=== PATIENT | female | born 1965 | race Caucasian/White ===

== ENCOUNTER → 2019-12-03 | Outpatient (CLI) | payer OTHER | LOC: LABNPT 07:00 → MERGE 07:00 | PROVIDERS: ATTEND Podiatrist | DX: Z20.828 Contact with and (suspected) exposure to other viral communicable diseases (principal) | CPT/HCPCS: 87635 ==

== ENCOUNTER 2021-05-18 11:08 | Inpatient (IN) | payer BC ==
[~2021-05-18] VITALS: Ht 163 cm; Wt 82.9 kg
[2021-05-18] VITALS (15 sets, daily range): BP systolic 90–131; BP diastolic 32–83
[2021-05-18] MEDS ORDERED: KETOROLAC 30 MG/ML VIAL IVP ONE (11:30)
[2021-05-18] MEDS ORDERED: ONDANSETRON 4 MG/2 ML (SDV) Z0FRAN IVP ONE (11:30)
--- NOTE | 2021-05-18 11:36 | ED General ---
General Stated Complaint: SHIN,COUGH,BODY ACHES,SOB Source of Information: Patient Exam Limitations: No Limitations History of Present Illness Date Seen by Provider: May 18, 2021 Time Seen by Provider: 11:15 Initial Comments Patient is a 56-year-old female who presents to the emergency department today with a chief complaint of severe headache, generalized fatigue and malaise, body aches, hip pain, left-sided upper back pain with cough that is nonproductive. Fevers and chills. Nausea and vomiting. Loss of taste. Her symptoms have been ongoing for about 8 days (TuesdayMay 11). Patient did not get her Covid vaccine. She states she has been quarantining at home. She has not had any contact with anyone with Covid that she is aware of. She does go out periodically to shop but states that she does not routinely mask. Patient has a history of hypertension, on lisinopril 10 mg. She is a non-smoker. She does feel short of breath. Denies leg pain calf cramping or swelling. She has been taking Advil for her headaches and fever. Last dose was 400 mg early this morning. She states she has not been able to keep any food or fluid down in recent days. All other review of systems reviewed and negative except as stated. Timing/Duration: Other (9 days) Severity: Severe Associated Systoms: Cough, Diaphoresis, Fever/Chills, Headaches, Malaise, Nausea/Vomiting, Shortness of Air, Weakness Allergies and Home Medications Allergies Coded Allergies: No Known Drug Allergies (Unverified , 05/18/21) Patient Home Medication List Home Medication List Reviewed: Yes Review of Systems Review of Systems Constitutional: see HPI, chills, fever, malaise, weakness EENTM: no symptoms reported Respiratory: cough, short of breath Cardiovascular: no symptoms reported Gastrointestinal: diarrhea, nausea, vomiting Genitourinary: no symptoms reported : No Musculoskeletal: muscle pain Skin: no symptoms reported Psychiatric/Neurological: Headache All Other Systems Reviewed Negative Unless Noted: Yes Physical Exam Vital Signs Vital Signs - First Documented 05/18/21 11:17 Temp 37.0 Pulse 120 Resp 22 B/P (MAP) 92/53 (66) Pulse Ox 93 O2 Delivery Room Air Capillary Refill : Height, Weight, BMI Height: '" Weight: lbs. oz. kg; BMI Method: General Appearance: No Apparent Distress, WD/WN Eyes: Bilateral Eye Normal Inspection, Bilateral Eye PERRL, Bilateral Eye EOMI HEENT: PERRL/EOMI, Other (dry oral mucosa) Neck: Normal Inspection Respiratory: No Accessory Muscle Use, No Respiratory Distress, Crackles (left base), Other (oxygen saturations on RA 94%) Cardiovascular: Regular Rate, Rhythm (tachy 120's), Normal Peripheral Pulses Gastrointestinal: Normal Bowel Sounds, Non Tender, Soft Extremity: Normal Capillary Refill, Normal Inspection, Normal Range of Motion, Non Tender, No Calf Tenderness Neurologic/Psychiatric: Alert, Oriented x3, No Motor/Sensory Deficits, Normal Mood/Affect Skin: Normal Color, Warm/Dry Focused Exam Lactate Level 05/18/21 12:40: Lactic Acid Level 1.16 Lactic Acid Level Laboratory Tests Test 05/18/21 12:40 Lactic Acid Level 1.16 MMOL/L (0.50-2.00) Progress/Results/Core Measures Suspected Sepsis SIRS Temperature: Pulse: Respiratory Rate: Laboratory Tests 05/18/21 12:00: White Blood Count 11.3H Blood Pressure / Mean: 05/18/21 12:40: Lactic Acid Level 1.16 Laboratory Tests 05/18/21 12:00: Creatinine 1.17, INR Comment 0.9, Platelet Count 213, Total Bilirubin 0.4 Results/Orders Lab Results Laboratory Tests Test 05/18/21 11:45 05/18/21 12:00 05/18/21 12:40 Range/Units Influenza Type A (RT-PCR) Not Detected Not Detecte Influenza Type B (RT-PCR) Not Detected Not Detecte SARS-CoV-2 RNA (RT-PCR) Detected H Not Detecte White Blood Count 11.3 H 4.3-11.0 10^3/uL Red Blood Count 5.25 H 3.80-5.11 10^6/uL Hemoglobin 15.1 11.5-16.0 g/dL Hematocrit 45 35-52 % Mean Corpuscular Volume 86 80-99 fL Mean Corpuscular Hemoglobin 29 25-34 pg Mean Corpuscular Hemoglobin Concent 34 32-36 g/dL Red Cell Distribution Width 13.3 10.0-14.5 % Platelet Count 213 130-400 10^3/uL Mean Platelet Volume 10.9 9.0-12.2 fL Immature Granulocyte % (Auto) 1 % Neutrophils (%) (Auto) 85 H 42-75 % Lymphocytes (%) (Auto) 12 12-44 % Monocytes (%) (Auto) 3 0-12 % Eosinophils (%) (Auto) 0 0-10 % Basophils (%) (Auto) 0 0-10 % Neutrophils # (Auto) 9.6 H 1.8-7.8 10^3/uL Lymphocytes # (Auto) 1.3 1.0-4.0 10^3/uL Monocytes # (Auto) 0.3 0.0-1.0 10^3/uL Eosinophils # (Auto) 0.0 0.0-0.3 10^3/uL Basophils # (Auto) 0.0 0.0-0.1 10^3/uL Immature Granulocyte # (Auto) 0.1 0.0-0.1 10^3/uL Prothrombin Time 12.9 12.2-14.7 SEC INR Comment 0.9 0.8-1.4 Activated Partial Thromboplast Time 33 24-35 SEC D-Dimer 0.62 H 0.00-0.49 UG/ML Sodium Level 134 L 135-145 MMOL/L Potassium Level 3.9 3.6-5.0 MMOL/L Chloride Level 104 98-107 MMOL/L Carbon Dioxide Level 17 L 21-32 MMOL/L Anion Gap 13 5-14 MMOL/L Blood Urea Nitrogen 22 H 7-18 MG/DL Creatinine 1.17 0.60-1.30 MG/DL Estimat Glomerular Filtration Rate 48 BUN/Creatinine Ratio 19 Glucose Level 101 70-105 MG/DL Calcium Level 8.2 L 8.5-10.1 MG/DL Corrected Calcium 8.8 8.5-10.1 MG/DL Total Bilirubin 0.4 0.1-1.0 MG/DL Aspartate Amino Transf (AST/SGOT) 38 H 5-34 U/L Alanine Aminotransferase (ALT/SGPT) 25 0-55 U/L Alkaline Phosphatase 52 40-136 U/L C-Reactive Protein High Sensitivity 17.86 H 0.00-0.50 MG/DL Total Protein 6.5 6.4-8.2 GM/DL Albumin 3.3 3.2-4.5 GM/DL Procalcitonin 0.44 H <0.10 NG/ML Lactic Acid Level 1.16 0.50-2.00 MMOL/L My Orders Orders - HARRISON FOSTER MD Cbc With Automated Diff (05/18/21 11:28) Comprehensive Metabolic Panel (05/18/21 11:28) Blood Culture (05/18/21 11:28) Sputum Culture (05/18/21 11:28) Protime With Inr (05/18/21 11:28) Partial Thromboplastin Time (05/18/21 11:28) Chest 1 View, Ap/Pa Only (05/18/21 11:28) Ed Iv/Invasive Line Start (05/18/21 11:28) Ed Iv/Invasive Line Start (05/18/21 11:28) Vital Signs Adult Sepsis Patie Q15M (05/18/21 11:28) O2 (05/18/21 11:28) Remove Rings In Anticipation O (05/18/21 11:28) Lactic Acid Analyzer (05/18/21 11:28) Influenza A And B By Pcr (05/18/21 11:28) Covid 19 Inhouse Test (05/18/21 11:28) Hs C Reactive Protein (05/18/21 11:28) Fibrin Degradation Products (05/18/21 11:28) Ns Iv 1000 Ml (Sodium Chloride 0.9%) (05/18/21 11:30) Ondansetron Injection (Zofran Injectio (05/18/21 11:30) Ketorolac Injection (Toradol Injection) (05/18/21 11:30) Procalcitonin (Pct) (05/18/21 11:36) Ns Iv 1000 Ml (Sodium Chloride 0.9%) (05/18/21 16:01) Ceftriaxone 1 Gm Pre-Mix (Rocephin 1 Gm (05/18/21 16:15) Azithromycin Injection (Zithromax Inject (05/18/21 16:15) Tocilizumab Injection (Non-For (Actemra (05/18/21 16:15) Dexamethasone Injection (Decadron Injec (05/18/21 16:15) Medications Given in ED Vital Signs/I&O 05/18/21 05/18/21 05/18/21 11:17 14:00 14:55 Temp 37.0 36.8 38.0 Pulse 120 100 104 Resp 22 22 20 B/P (MAP) 92/53 (66) 114/69 108/62 Pulse Ox 93 95 94 O2 Delivery Room Air Room Air Room Air 05/19/21 00:00 Intake Total 250 ml Balance 250 ml Capillary Refill : Progress Note #1: Time: 13:35 Progress Note Patient is very fluid responsive with her blood pressure. Currently 111/65, second liter of normal saline is infusing. Patient's heart rate is down. Oxygen saturations remained 94 to 95% on room air. Lactic acid is less than 2. CRP is elevated pro-Deandre is slightly elevated. D-dimer is marginally elevated at 0.65. Patient's electrolytes are normal, CBC reveals a white count of 12,000. Discussed with the hospitalist, he would recommend Regeneron treatment. Would give the patient the expectation of potentially worsening throughout the night. Would recommend a pulse oximeter at home to monitor her oxygen saturation. I have provided the patient with the fax sheet on Regeneron infusion. I have discussed the fact that this is an EUA medication, still under investigation. But is also used for the treatment outpatient of Covid pneumonia. Patient verbalized understanding and is aware of the risks and potential benefits. She would like to proceed with infusion. We do not have an infusion clinic tomorrow and as the patient is 8 days into her illness we are going to give it to her here in the emergency department prior to discharge to home. Progress Note #2: Time: 14:46 Progress Note Patient remains a little tachy with a HR of 110; blood pressure 107/56. oxygen on RA is 94% Progress Note #3: Time: 16:07 Progress Note Reevaluated patient approximately an hour after the Regeneron infusion. Patient was noted to be declining and oxygen saturations while at rest in the bed satting 90 to 91% on room air. She is tachycardic at 113. Her temp has gone up a little bit and is slightly over 100 degrees. Blood pressure is up in the 120s however after she completed 2 L of normal saline. Patient was ambulated in the department and dropped oxygen saturations down to 85 to 86%. She became very dyspneic. Case was discussed with Dr. Smith who agreed with admission. We will put her inpatient on the cardiac stepdown unit. He requested Decadron 6 mg, Actemra protocol, azithromycin 500 mg IV, Rocephin 1 g IV. We will start her on Lovenox 40 mg subcu once daily. She will have some maintenance fluids started. Diagnostic Imaging Diagonstic Imaging: Xray Plain Films/CT/US/NM/MRI: chest Comments [facility] [place], [place] NAME: RICHELLE BLACK [facility] REC#: [id number] PT STATUS: REG ER : 1965 PHYSICIAN: HARRISON FOSTER MD ADMIT DATE: 05/18/21/ER Draft Date of Exam:05/18/21 CHEST 1 VIEW, AP/PA ONLY HISTORY: Covid positive, headache, cough, shortness of air, dizziness, fever. COMPARISON: None. TECHNIQUE: Frontal view of the chest. FINDINGS: There are patchy airspace opacities throughout the right lung and in the left lung base. There is no pleural effusion or pneumothorax. The cardiac silhouette is normal in size. The lung volumes are low. No acute osseous abnormality is seen. Cervical spine fusion hardware is noted. IMPRESSION: Bilateral airspace opacities, right greater than left, consistent with infection. The report was faxed to Infection Control by [email or web address]@1:08 PM. Dictated on workstation # [id number] Dict: 05/18/21 1251 Trans: 05/18/21 1309 [id number] Interpreted by: KAROLYN MAC MD Electronically signed by: Critical Care Note Critical Care Start Time: 11:15 Stop Time: 16:09 Total Time (minutes) Critical care time 1 hour total in the evaluation and management of this 56-year-old patient with Covid pneumonia. Time includes initial evaluation and management of relatively low blood pressure and tachycardia with fluid resuscitation x2 L, serial reevaluations of her status both respiratory and circulatory. Time includes review and interpretation of laboratory studies, chest x-ray, inflammatory markers. Time includes administration of Regeneron therapy, monitoring for an hour afterwards. Also includes oxygen placement due to declining respiratory status, increasing hypoxia. Time also includes discussion with the hospitalist for admission orders. Departure Impression Primary Impression: Pneumonia due to COVID-19 virus Disposition: ADMITTED INPATIENT Condition: Critical Admissions Decision to Admit Reason: Admit from ER (General) Decision to Admit/Date: May 18, 2021 Time/Decision to Admit Time: 16:11 Departure-Patient Inst. Decision time for Depature: 13:37 Referrals: NO,LOCAL PHYSICIAN (PCP/Family) Primary Care Physician Patient Instructions: COVID-19 ED Add. Discharge Instructions: Please stop by the [facility] pharmacy or other pharmacy of your choice that preferably has a drive-through option and obtain a pulse oximeter. You will need to periodically check your oxygen on your finger. If it drops below 90 you need to come back to the emergency department for admission to the hospital. Please drink plenty of fluids to stay well-hydrated. Take Tylenol and/or ibuprofen as needed for fever and body aches. We have given you the Regeneron infusion today. It will hopefully shorten the course of your illness. Please come back to the emergency department for any other new, concerning or emergent complaints. You will need to quarantine for a total of 10 days. Please follow-up with your primary care physician. HARRISON FOSTER MD May 18, 2021 11:36
[2021-05-18] MEDS: NS IV 1000 ML 1,000 ML IV SCH ×3 (11:59→18:43)
[2021-05-18 12:09] LABS: BASOPHILS % (AUTO) 0 % (0-10); EOSINOPHILS % (AUTO) 0 % (0-10); HEMATOCRIT 45 % (35-52); HEMOGLOBIN 15.1 g/dL (11.5-16.0); LYMPHOCYTES # (AUTO) 1.3 10^3/uL (1.0-4.0); LYMPHOCYTES % (AUTO) 12 % (12-44); MEAN CORPUSCULAR HEMOGLOBIN 29 pg (25-34); MEAN CORPUSCULAR HGB CONC 34 g/dL (32-36); MEAN CORPUSCULAR VOLUME 86 fL (80-99); MEAN PLATELET VOLUME 10.9 fL (9.0-12.2); MONOCYTES # (AUTO) 0.3 10^3/uL (0.0-1.0); MONOCYTES % (AUTO) 3 % (0-12); NEUTROPHILS # (AUTO) 9.6 10^3/uL (1.8-7.8); NEUTROPHILS % (AUTO) 85 % (42-75); PLATELET COUNT 213 10^3/uL (130-400); WHITE BLOOD COUNT 11.3 10^3/uL (4.3-11.0)
[2021-05-18 12:18] LABS: ALBUMIN 3.3 GM/DL (3.2-4.5); POTASSIUM 3.9 MMOL/L (3.6-5.0)
[2021-05-18 12:19] LABS: CALCIUM 8.2 MG/DL (8.5-10.1)
[2021-05-18 12:21] LABS: TOTAL PROTEIN 6.5 GM/DL (6.4-8.2)
[2021-05-18 12:22] LABS: BILIRUBIN,TOTAL 0.4 MG/DL (0.1-1.0)
[2021-05-18 12:24] LABS: CREATININE SERUM 1.17 MG/DL (0.60-1.30)
[2021-05-18 12:25] LABS: FIBRIN DEGRADATION PRODUCTS 0.62 UG/ML (0.00-0.49); INR 0.9 (0.8-1.4); PROTHROMBIN TIME PATIENT 12.9 SEC (12.2-14.7)
--- NOTE | 2021-05-18 12:54 | Diagnostic Imaging Report ---
HISTORY: Covid positive, headache, cough, shortness of air, dizziness, fever. COMPARISON: None. TECHNIQUE: Frontal view of the chest. FINDINGS: There are patchy airspace opacities throughout the right lung and in the left lung base. There is no pleural effusion or pneumothorax. The cardiac silhouette is normal in size. The lung volumes are low. No acute osseous abnormality is seen. Cervical spine fusion hardware is noted. IMPRESSION: Bilateral airspace opacities, right greater than left, consistent with infection. The report was faxed to Infection Control by [email or web address]@1:08 PM. Dictated by: Dictated on workstation # [id number]
[2021-05-18] MEDS ORDERED: EPINEPHrine INJECTION 1 MG/ML AMP IM PRN (13:45)
[2021-05-18] MEDS ORDERED: diphenhydrAMINE 50 MG/ML INJ (BENADRYL) IV PRN (13:45)
[2021-05-18] MEDS ORDERED: CASIRIVIMAB/IMDEVIMAB 1,200 MG in NS (IVPB) 250 ML IV ONE (14:00)
[2021-05-18] MEDS ORDERED: ACETAMINOPHEN 500 MG TAB (TYLENOL) PO PRN (14:00)
[2021-05-18] MEDS ORDERED: ONDANSETRON 4 MG/2 ML (SDV) Z0FRAN IV PRN ×2 (14:00→18:30)
[2021-05-18] MEDS ORDERED: NS IV 1000 ML 1,000 ML IV STA (16:01)
[2021-05-18] MEDS ORDERED: cefTRIAXone 1 GM PRE-MIX 50 ML IV ONE (16:15)
[2021-05-18] MEDS ORDERED: TOCILIZUMAB INJECTION (NON-FOR 400 MG, TOCILIZUMAB INJECTION 200 MG in NS (IVPB) 70 ML IV ONE (16:15)
[2021-05-18] MEDS ORDERED: AZITHROMYCIN INJECTION 500 MG in NS (IVPB) 250 ML IV ONE (16:15)
[2021-05-18] MEDS ORDERED: CATHETER FLUSH 10 ML SYR IV PRN (18:30)
[2021-05-18] MEDS: ENOXAPARIN 40 MG/0.4 ML (LOVENOX) SYR SC SCH (21:00)
[2021-05-19] VITALS (11 sets, daily range): BP systolic 92–144; BP diastolic 53–81
[2021-05-19] MEDS: NS IV 1000 ML 1,000 ML IV SCH ×2 (01:14→11:24)
[2021-05-19] MEDS: ACETAMINOPHEN 500 MG TAB (TYLENOL) PO PRN ×2 (01:16→08:38)
[2021-05-19 05:58] LABS: BASOPHILS % (AUTO) 0 % (0-10); EOSINOPHILS % (AUTO) 0 % (0-10); HEMATOCRIT 35 % (35-52); HEMOGLOBIN 11.8 g/dL (11.5-16.0); LYMPHOCYTES # (AUTO) 1.7 10^3/uL (1.0-4.0); LYMPHOCYTES % (AUTO) 14 % (12-44); MEAN CORPUSCULAR HEMOGLOBIN 29 pg (25-34); MEAN CORPUSCULAR HGB CONC 34 g/dL (32-36); MEAN CORPUSCULAR VOLUME 85 fL (80-99); MEAN PLATELET VOLUME 10.4 fL (9.0-12.2); MONOCYTES # (AUTO) 0.4 10^3/uL (0.0-1.0); MONOCYTES % (AUTO) 3 % (0-12); NEUTROPHILS % (AUTO) 82 % (42-75); PLATELET COUNT 212 10^3/uL (130-400); WHITE BLOOD COUNT 12.3 10^3/uL (4.3-11.0)
[2021-05-19 06:07] LABS: SMEAR SCAN COMMENT YES
[2021-05-19 06:12] LABS: ALBUMIN 2.7 GM/DL (3.2-4.5)
[2021-05-19 06:13] LABS: POTASSIUM 3.5 MMOL/L (3.6-5.0)
[2021-05-19 06:15] LABS: TOTAL PROTEIN 5.2 GM/DL (6.4-8.2)
[2021-05-19 06:17] LABS: BILIRUBIN,TOTAL 0.3 MG/DL (0.1-1.0)
[2021-05-19 06:19] LABS: CREATININE SERUM 0.78 MG/DL (0.60-1.30)
[2021-05-19] MEDS: cefTRIAXone 1 GM IV (PRE-MIX) 50 ML IV SCH (08:37)
[2021-05-19] MEDS: AZITHROMYCIN 250 MG TAB (ZITHROMAX) PO SCH (08:38)
[2021-05-19] MEDS ORDERED: OMEP20CA18 PO (09:49)
[2021-05-19] MEDS ORDERED: IBUP-30 PO (09:49)
[2021-05-19] MEDS ORDERED: ESTR0.5T3 PO (09:49)
[2021-05-19] MEDS ORDERED: ASCO500T17 PO (09:49)
[2021-05-19] MEDS ORDERED: CHOL-34 PO (09:49)
[2021-05-19] MEDS ORDERED: LISI10TA25 PO (09:49)
[2021-05-19] MEDS ORDERED: DOXY100C5 PO (09:49)
[2021-05-19] MEDS ORDERED: ZINC50TA58 PO (09:49)
[2021-05-19] MEDS ORDERED: DEXTROMETHORPHAN SUSP 30 MG/5 ML 30 ML (DELSYM) PO SCH (11:00)
[2021-05-19] MEDS: guaiFENesin/DM (ROBITUSSIN DM) 10 ML UDC PO PRN ×3 (11:57→20:13)
[2021-05-19] MEDS ORDERED: NS IV NR ×3 (12:00)
[2021-05-19] MEDS ORDERED: TOCILIZUMAB IV NR ×3 (12:00)
--- NOTE | 2021-05-19 13:25 | History & Physical-Hospitalist ---
History of Present Illness HPI/Chief Complaint Orly Rai is a 56 year old female with PMH HTN, GERD, who presented with shortness of breath. Her symptoms started one week ago. She has been having fevers and chills. She has been having cough. She reports diarrhea. She reports nausea with coughing. She denies abdominal pain. She is not vaccinated against COVID. She was seen in the ER yesterday and was not requiring oxygen and was given the monoclonal antibody infusion. She was walking prior to being discharged and became hypoxic. Source: patient Exam Limitations: no limitations Date Seen 05/19/21 Time Seen by a Provider: 10:40 Attending Physician Shamika Coronado MD PCP No,Local Physician Referring Physician Date of Admission May 18, 2021 at 16:15 Home Medications & Allergies Home Medications Reviewed patient Home Medication Reconciliation performed by pharmacy medication reconciliations missile and missile checkout technician and/or nursing. Patients Allergies have been reviewed. Allergies Allergies Coded Allergies losartan (Verified Adverse Reaction, Unknown, 05/19/21) SEVERE HEADACHES Past Uncvamc-Nylylt-Pbxmol Hx Patient Social History Tobacco Use?: No Smoking Status: Never a Smoker Smokeless Tobacco Frequency: Never a User Use of E-Cig and/or Vaping dev: No Substance use?: No Alcohol Use?: No Pt feels they are or have been: No Immunizations Up To Date First/Initial COVID19 Vaccinat: NONE Second COVID19 Vaccination Brian: NONE Current Status Advance Directives: No Communicates: Verbally Primary Language: Luxembourger Preferred Spoken Language: Luxembourger Is interpretation needed?: No Implanted or Applied Medical D: None Past Medical History Hypertension Gastroesophageal Reflux Family Medical History No Pertinent Family Hx Review of Systems Constitutional: chills, fever EENTM: no symptoms reported Respiratory: cough, short of breath Cardiovascular: no symptoms reported Gastrointestinal: diarrhea, nausea Genitourinary: no symptoms reported Musculoskeletal: no symptoms reported Skin: no symptoms reported Psychiatric/Neurological: No Symptoms Reported Physical Exam Physical Exam Vital Signs Vital Signs - First Documented 05/18/21 05/18/21 11:17 16:20 Temp 37.0 Pulse 120 Resp 22 B/P (MAP) 92/53 (66) Pulse Ox 93 O2 Delivery Room Air O2 Flow Rate 2.00 Capillary Refill : Less Than 3 Seconds Height, Weight, BMI Height: '" Weight: lbs. oz. kg; 30.71 BMI Method: General Appearance: WD/WN, Anxious, Mild Distress (uncomfortable) HEENT: PERRL/EOMI, Pharynx Normal Neck: Normal Inspection, Supple Respiratory: Lungs Clear, Normal Breath Sounds, No Respiratory Distress Cardiovascular: Regular Rate, Rhythm, No Edema, No Murmur Gastrointestinal: Normal Bowel Sounds, Non Tender, Soft Extremity: Normal Inspection, Non Tender, No Pedal Edema Neurologic/Psychiatric: Alert, Oriented x3, No Motor/Sensory Deficits, Normal Mood/Affect Skin: Normal Color, Warm/Dry Results Results/Procedures Labs Laboratory Tests 05/18/21 12:00 05/19/21 05:10 Patient resulted labs reviewed. Imaging: Reviewed Imaging Report Assessment/Plan Admission Diagnosis Acute respiratory failure due to COVID-19 Admission Status: Inpatient Order (span 2 midnights) Reason for Inpatient Admission: Respiratory failure Assessment and Plan Acute respiratory failure due to COVID-19 Secondary bacterial pneumonia COVID+ on arrival, symptoms started 05/11 s/p monoclonal antibody infusion Supplemental oxygen as needed Started on Decadron Inflammatory markers markedly elevated Worsening hypoxia Discussed Actemra risks/benefits/EUA use and patient agrees Procalcitonin elevated Started on Rocephin and Azithromycin Ddimer within normal limits Prophylactic Lovenox Acute kidney injury Received IV fluids in ER Resolved Decrease maintenance fluids HTN Hold home meds Monitor GERD Continue PPI Obesity Clinically significant, no acute management needs DVT prophylaxis: Lovenox Diagnosis/Problems Diagnosis/Problems (1) Acute respiratory failure Status: Acute Qualifiers: Respiratory failure complication: hypoxia Qualified Codes: J96.01 - Acute respiratory failure with hypoxia (2) Pneumonia due to COVID-19 virus Status: Acute (3) Secondary bacterial pneumonia Status: Acute (4) CHESTER (acute kidney injury) Status: Acute (5) Obesity Status: Chronic (6) HTN (hypertension) Status: Chronic (7) GERD (gastroesophageal reflux disease) Status: Chronic SHAMIKA CORONADO MD May 19, 2021 13:25
[2021-05-19] MEDS: ENOXAPARIN 40 MG/0.4 ML (LOVENOX) SYR SC SCH (17:55)
[2021-05-19] MEDS: BENZONATATE 100 MG (TESSALON) CAPSULE PO SCH (20:13)
[2021-05-20 00:33] VITALS: BP 125/73
[2021-05-20] MEDS: RT-ALBUTEROL HFA 8.5 GM INHALER IH PRN (00:41)
[2021-05-20 04:14] VITALS: BP 114/78
[2021-05-20] MEDS: NS IV 1000 ML 1,000 ML IV SCH ×2 (04:39→12:02)
[2021-05-20 05:04] LABS: BASOPHILS % (AUTO) 0 % (0-10); EOSINOPHILS % (AUTO) 0 % (0-10); HEMATOCRIT 36 % (35-52); HEMOGLOBIN 12.3 g/dL (11.5-16.0); LYMPHOCYTES # (AUTO) 2.3 10^3/uL (1.0-4.0); LYMPHOCYTES % (AUTO) 20 % (12-44); MEAN CORPUSCULAR HEMOGLOBIN 29 pg (25-34); MEAN CORPUSCULAR HGB CONC 34 g/dL (32-36); MEAN CORPUSCULAR VOLUME 85 fL (80-99); MEAN PLATELET VOLUME 10.3 fL (9.0-12.2); MONOCYTES # (AUTO) 0.4 10^3/uL (0.0-1.0); MONOCYTES % (AUTO) 4 % (0-12); NEUTROPHILS # (AUTO) 8.4 10^3/uL (1.8-7.8); NEUTROPHILS % (AUTO) 75 % (42-75); PLATELET COUNT 240 10^3/uL (130-400); WHITE BLOOD COUNT 11.3 10^3/uL (4.3-11.0)
[2021-05-20] MEDS: guaiFENesin/DM (ROBITUSSIN DM) 10 ML UDC PO PRN ×2 (05:08→21:22)
[2021-05-20 05:20] LABS: ALBUMIN 2.8 GM/DL (3.2-4.5)
[2021-05-20 05:21] LABS: POTASSIUM 3.7 MMOL/L (3.6-5.0)
[2021-05-20 05:22] LABS: CALCIUM 7.6 MG/DL (8.5-10.1)
[2021-05-20 05:23] LABS: TOTAL PROTEIN 5.5 GM/DL (6.4-8.2)
[2021-05-20 05:25] LABS: BILIRUBIN,TOTAL 0.3 MG/DL (0.1-1.0)
[2021-05-20 05:27] LABS: CREATININE SERUM 0.67 MG/DL (0.60-1.30)
[2021-05-20 07:34] VITALS: BP 132/69
[2021-05-20] MEDS: PANTOPRAZOLE 40 MG (PROTONIX) TAB PO SCH (07:48)
[2021-05-20] MEDS: BENZONATATE 100 MG (TESSALON) CAPSULE PO SCH ×3 (07:48→21:22)
[2021-05-20] MEDS: cefTRIAXone 1 GM IV (PRE-MIX) 50 ML IV SCH (07:49)
[2021-05-20] MEDS: AZITHROMYCIN 250 MG TAB (ZITHROMAX) PO SCH (07:49)
[2021-05-20] MEDS ORDERED: RT-ALBUTEROL HFA 8.5 GM INHALER IH SCH (08:00)
[2021-05-20] MEDS: RT-ALBUTEROL HFA 8.5 GM INHALER IH SCH ×4 (08:11→21:15)
[2021-05-20 11:47] VITALS: BP 114/59
--- NOTE | 2021-05-20 12:04 | Progress Note - Hospitalist ---
Subjective HPI/CC On Admission Date Seen by Provider: May 20, 2021 Time Seen by Provider: 09:45 Orly Rai is a 56 year old female with PMH HTN, GERD, who presented with shortness of breath. Her symptoms started one week ago. She has been having fevers and chills. She has been having cough. She reports diarrhea. She reports nausea with coughing. She denies abdominal pain. She is not vaccinated against COVID. She was seen in the ER yesterday and was not requiring oxygen and was given the monoclonal antibody infusion. She was walking prior to being discharged and became hypoxic. Subjective/Events-last exam She is feeling a little better today. Her cough is better. She is feeling a bit anxious. She is not having subjective fevers. She does not have an appetite. She does not like the smell of the oxygen tubing. She does not like the pressure of the high flow oxygen. Focused Exam Lactate Level 05/18/21 12:40: Lactic Acid Level 1.16 Objective Exam Vital Signs Vital Signs Date Time Temp Pulse Resp B/P (MAP) Pulse Ox O2 Delivery O2 Flow Rate FiO2 05/20/21 11:47 36.0 99 24 114/59 (77) 93 Vapotherm 20.00 80.00 05/20/21 10:27 100 Capillary Refill : Less Than 3 Seconds General Appearance: WD/WN, Anxious, Mild Distress (tachypnea) Respiratory: Lungs Clear, Normal Breath Sounds, Respiratory Distress (tachypnea) Cardiovascular: No Edema, No Murmur, Tachycardia Gastrointestinal: Normal Bowel Sounds, Non Tender, Soft Extremity: Normal Inspection, Non Tender, No Pedal Edema Neurologic/Psychiatric: Alert, Oriented x3, No Motor/Sensory Deficits Skin: Normal Color, Warm/Dry Results/Procedures Lab Laboratory Tests 05/20/21 04:41 Patient resulted labs reviewed. Imaging: Reviewed Imaging Report Assessment/Plan Assessment and Plan Assess & Plan/Chief Complaint Acute respiratory failure due to COVID-19 Secondary bacterial pneumonia COVID+ on arrival, symptoms started 05/11 Supplemental oxygen as needed Worsening hypoxia s/p monoclonal antibody infusion 05/18 Continue Decadron s/p Actemra 05/19 Continue Rocephin and Azithromycin Prophylactic Lovenox HTN Hold home meds Monitor GERD Continue PPI Obesity Clinically significant, no acute management needs DVT prophylaxis: Lovenox Acute kidney injury, resolved Diagnosis/Problems Diagnosis/Problems (1) Acute respiratory failure Status: Acute Qualifiers: Respiratory failure complication: hypoxia Qualified Codes: J96.01 - Acute respiratory failure with hypoxia (2) Pneumonia due to COVID-19 virus Status: Acute (3) Secondary bacterial pneumonia Status: Acute (4) CHESTER (acute kidney injury) Status: Resolved Resolution Date/Time: 05/20/21 @ 12:03 (5) Obesity Status: Chronic (6) HTN (hypertension) Status: Chronic (7) GERD (gastroesophageal reflux disease) Status: Chronic SHAMIKA CORONADO MD May 20, 2021 12:04
[2021-05-20] MEDS: LACTATED RINGERS 1,000 ML IV SCH ×2 (12:57→21:21)
[2021-05-20] MEDS: ALPRAZolam 0.25 MG (XANAX) TAB PO PRN ×2 (12:57→21:22)
[2021-05-20 15:13] VITALS: BP 132/76
[2021-05-20] MEDS: ENOXAPARIN 40 MG/0.4 ML (LOVENOX) SYR SC SCH (18:10)
[2021-05-20 20:00] VITALS: BP 148/84
[2021-05-21] VITALS (18 sets, daily range): BP systolic 92–176; BP diastolic 53–111
[2021-05-21 05:01] LABS: BASOPHILS % (AUTO) 0 % (0-10); EOSINOPHILS % (AUTO) 0 % (0-10); HEMATOCRIT 37 % (35-52); HEMOGLOBIN 12.3 g/dL (11.5-16.0); LYMPHOCYTES # (AUTO) 1.8 10^3/uL (1.0-4.0); LYMPHOCYTES % (AUTO) 17 % (12-44); MEAN CORPUSCULAR HEMOGLOBIN 28 pg (25-34); MEAN CORPUSCULAR HGB CONC 33 g/dL (32-36); MEAN CORPUSCULAR VOLUME 85 fL (80-99); MEAN PLATELET VOLUME 9.7 fL (9.0-12.2); MONOCYTES # (AUTO) 0.6 10^3/uL (0.0-1.0); MONOCYTES % (AUTO) 6 % (0-12); NEUTROPHILS # (AUTO) 8.5 10^3/uL (1.8-7.8); NEUTROPHILS % (AUTO) 76 % (42-75); PLATELET COUNT 281 10^3/uL (130-400); WHITE BLOOD COUNT 11.1 10^3/uL (4.3-11.0)
[2021-05-21 05:16] LABS: ALBUMIN 2.9 GM/DL (3.2-4.5); POTASSIUM 3.7 MMOL/L (3.6-5.0)
[2021-05-21 05:17] LABS: CALCIUM 8.1 MG/DL (8.5-10.1)
[2021-05-21 05:19] LABS: TOTAL PROTEIN 5.6 GM/DL (6.4-8.2)
[2021-05-21 05:21] LABS: BILIRUBIN,TOTAL 0.3 MG/DL (0.1-1.0)
[2021-05-21 05:22] LABS: CREATININE SERUM 0.69 MG/DL (0.60-1.30)
[2021-05-21] MEDS: LACTATED RINGERS 1,000 ML IV SCH ×3 (05:57→17:30)
[2021-05-21] MEDS: RT-ALBUTEROL HFA 8.5 GM INHALER IH SCH ×4 (06:56→18:57)
[2021-05-21] MEDS: AZITHROMYCIN 250 MG TAB (ZITHROMAX) PO SCH (08:30)
[2021-05-21] MEDS: PANTOPRAZOLE 40 MG (PROTONIX) TAB PO SCH (08:30)
[2021-05-21] MEDS: cefTRIAXone 1 GM IV (PRE-MIX) 50 ML IV SCH (08:30)
[2021-05-21] MEDS: BENZONATATE 100 MG (TESSALON) CAPSULE PO SCH ×3 (08:30→21:24)
--- NOTE | 2021-05-21 08:37 | Diagnostic Imaging Report ---
INDICATION: Covid pneumonia. Cough with respiratory distress. Comparison with 05/18/2021. FINDINGS: Portable chest. There has been near complete opacification of the right lung now. There are air bronchograms. Left lung shows increasing infiltrate as well especially in the lower lobe. The left upper lung remains clear. The heart is upper limits of normal. No pneumothorax or pleural effusion. IMPRESSION: 1. Bilateral pneumonia with significant increase in alveolar infiltrate especially in the right lung since previous exam. Dictated by: Dictated on workstation # [id number]
[2021-05-21] MEDS: ACETAMINOPHEN 500 MG TAB (TYLENOL) PO PRN (10:30)
[2021-05-21] MEDS: ALPRAZolam 0.25 MG (XANAX) TAB PO PRN (10:30)
[2021-05-21] MEDS: guaiFENesin/DM (ROBITUSSIN DM) 10 ML UDC PO PRN ×2 (10:30→21:24)
--- NOTE | 2021-05-21 13:59 | Tele-ICU Consult ---
History of Present Illness History of Present Illness Date Seen by Provider: May 21, 2021 Time Seen by Provider: 12:15 History of Present Illness She is a 56-year-old female with unknown past medical history but no history of Covid vaccination presented to the emergency department on 05/18/2021 with a complaint of severe headache generalized fatigue malaise nonproductive cough fevers and chills. Chest x-ray showed bilateral infiltrates and she is positive for Covid PCR. She is admitted to medical floor and treated with BiPAP ventilation and antibiotics. However as her oxygen demand increased and she is transferred to the intensive care unit. She is currently resting well with Vapotherm but unable to walk even 2 feet without getting short of breath and hypoxic. She is unable to give any detailed history. I have reviewed and made a video visit and discussed with the GRAPHIC COORDINATOR. Available electronic data and images reviewed. Allergies and Home Medications Allergies Coded Allergies: losartan (Verified Adverse Reaction, Unknown, 05/19/21) SEVERE HEADACHES Home Medications Ascorbic Acid 500 Mg Tablet, 500 MG PO DAILY, (Reported) Cholecalciferol (Vitamin D3) 25 Mcg Tablet, 25 MCG PO DAILY, (Reported) Doxycycline Hyclate 100 Mg Capsule, 100 MG PO BID, (Reported) Estradiol 0.5 Mg Tablet, 0.5 MG PO DAILY, (Reported) Ibuprofen 200 Mg Tablet, 400-600 MG PO Q8H PRN for PAIN-MILD (1-4), (Reported) Lisinopril 10 Mg Tablet, 10 MG PO DAILY, (Reported) Omeprazole 20 Mg Capsule.dr, 20 MG PO BID, (Reported) Zinc 50 Mg Tablet, 50 MG PO DAILY, (Reported) Past Medical/Social/Family Hx Patient Social History Tobacco Use?: No Smoking Status: Never a Smoker Smokeless Tobacco Frequency: Never a User Use of E-Cig and/or Vaping dev: No Substance use?: No Alcohol Use?: No Pt stated abuse/neglect: No Immunizations Up To Date Influenza Vaccine Up-to-Date: No; Not Current First/Initial COVID19 Vaccinat: NONE Second COVID19 Vaccination Brian: NONE Current Status Advance Directives: No Communicates: Verbally Primary Language: French Preferred Spoken Language: French Is interpretation needed?: No Implanted or Applied Medical D: None Review of Systems Constitutional: see HPI Sepsis Event Evaluation Height, Weight, BMI Height: '" Weight: lbs. oz. kg; 30.71 BMI Method: Exam Exam Patient acknowledged, consented, and participated in this virtual visit which was conducted using real time audio/video Vital Signs Date Time Temp Pulse Resp B/P (MAP) Pulse Ox O2 Delivery O2 Flow Rate FiO2 05/21/21 13:00 100 05/21/21 12:05 35.7 05/21/21 11:00 152/111 (125) 93 Vapotherm 20.00 100.00 05/21/21 10:00 96 Vapotherm 30.00 100 05/21/21 10:00 92 31 153/96 (115) 93 Vapotherm 20.00 100.00 05/21/21 09:00 98 21 137/79 (98) 89 Vapotherm 20.00 100.00 05/21/21 08:04 36.3 103 22 136/88 (104) 90 Vapotherm 05/21/21 08:00 Vapotherm 30.00 100 05/21/21 07:00 87 05/21/21 06:56 87 Vapotherm 22.00 100 05/21/21 04:00 37.0 05/21/21 01:00 86 05/21/21 00:00 37.0 86 24 105/82 (90) 94 Vapotherm 20.00 100.00 05/20/21 21:15 85 Vapotherm 20.00 80 05/20/21 20:00 Vapotherm 20.00 100 05/20/21 20:00 36.7 92 26 148/84 (105) 92 Vapotherm 05/20/21 19:00 100 05/20/21 15:26 91 Vapotherm 20.00 80 05/20/21 15:13 35.9 96 22 132/76 (94) 92 Vapotherm 20.00 80.00 I & O 05/21/21 07:00 Intake Total 3200 ml Output Total 800 ml Balance 2400 ml Height & Weight Height: '" Weight: lbs. oz. kg; 30.71 BMI Method: General Appearance: WD/WN, Anxious, Mild Distress (tachypnea) HEENT: PERRL/EOMI, Pharynx Normal Neck: Normal Inspection, Supple Respiratory: Lungs Clear, Normal Breath Sounds, Respiratory Distress (tachypnea) Cardiovascular: No Edema, No Murmur, Tachycardia Capillary Refill: Less Than 3 Seconds Extremity: Normal Inspection, Non Tender, No Pedal Edema Neurologic/Psychiatric: Alert, Oriented x3, No Motor/Sensory Deficits Skin: Normal Color, Warm/Dry Other comments PE per attending physician Results Lab Laboratory Tests 05/20/21 04:41 05/21/21 04:50 Meds reviewed. Radiology cxr reviewed Assessment/Plan Assessment/Plan 1. Acute Covid19 pneumonia 2. Acute hypoxic respiratory failure due to Covid19 pneumonia 3. Superadded bacterial pneumonia cannot be ruled out 4. Chronic pain syndrome. Recommendations 1. Continue IV dexamethasone 2. IV antibiotics per primary care physician 3. DVT prophylaxis 4. Albuterol nebulizer treatment as needed. 5. Continue Vapotherm and wean FiO2 as tolerated. 6. Prognosis is guarded. Critical Care: Critically Ill Patient Time spent with patient (mins): 45 MELANIE ARCHULETA MD May 21, 2021 13:59
--- NOTE | 2021-05-21 16:26 | Progress Note - Hospitalist ---
Subjective HPI/CC On Admission Date Seen by Provider: May 21, 2021 Time Seen by Provider: 10:05 Orly Rai is a 56 year old female with PMH HTN, GERD, who presented with shortness of breath. Her symptoms started one week ago. She has been having fevers and chills. She has been having cough. She reports diarrhea. She reports nausea with coughing. She denies abdominal pain. She is not vaccinated against COVID. She was seen in the ER yesterday and was not requiring oxygen and was given the monoclonal antibody infusion. She was walking prior to being discharged and became hypoxic. Subjective/Events-last exam She is requiring more oxygen. She continues to have a bad cough. She thinks she pulled a muscle in her abdomen from coughing. She is anxious. She does not understand why she is getting worse. Her is reportedly requesting transfer which is now being attempted. An attempt was made to contact him with no answer. Objective Exam Vital Signs Vital Signs Date Time Temp Pulse Resp B/P (MAP) Pulse Ox O2 Delivery O2 Flow Rate FiO2 05/21/21 16:00 90 27 123/76 (92) 94 Vapotherm 20.00 100.00 05/21/21 15:38 37.0 21 Capillary Refill : Less Than 3 Seconds General Appearance: Anxious, Mild Distress (uncomfortable), Obese Respiratory: Lungs Clear, Normal Breath Sounds, No Respiratory Distress Cardiovascular: Regular Rate, Rhythm, No Edema, No Murmur Gastrointestinal: Normal Bowel Sounds, Non Tender, Soft Extremity: Normal Inspection, Non Tender, No Pedal Edema Neurologic/Psychiatric: Alert, Oriented x3, No Motor/Sensory Deficits Skin: Normal Color, Warm/Dry Results/Procedures Lab Laboratory Tests 05/21/21 04:50 Patient resulted labs reviewed. Imaging: Reviewed Imaging Report Assessment/Plan Assessment and Plan Assess & Plan/Chief Complaint Acute respiratory failure due to COVID-19 Secondary bacterial pneumonia Requiring near maximal support with Vapotherm High risk for intubation s/p monoclonal antibody infusion 05/18 Continue Decadron s/p Actemra 05/19 Continue Rocephin and Azithromycin Prophylactic Lovenox Transfer to ICU Consult TeleICU HTN Hold home meds Monitor GERD Continue PPI Obesity Clinically significant, no acute management needs DVT prophylaxis: Lovenox Acute kidney injury, resolved Critical Care Critically Ill Patient Diagnosis/Problems Diagnosis/Problems (1) Acute respiratory failure Status: Acute Qualifiers: Respiratory failure complication: hypoxia Qualified Codes: J96.01 - Acute respiratory failure with hypoxia (2) Pneumonia due to COVID-19 virus Status: Acute (3) Secondary bacterial pneumonia Status: Acute (4) CHESTER (acute kidney injury) Status: Resolved Resolution Date/Time: 05/20/21 @ 12:03 (5) Obesity Status: Chronic (6) HTN (hypertension) Status: Chronic (7) GERD (gastroesophageal reflux disease) Status: Chronic SHAMIKA CORONADO MD May 21, 2021 16:26
[2021-05-21] MEDS: oxyCODONE/APAP 5/325MG (PERCOCET 5) TABLET PO PRN ×2 (17:09→21:25)
[2021-05-21] MEDS: ENOXAPARIN 40 MG/0.4 ML (LOVENOX) SYR SC SCH (18:02)
[2021-05-22] VITALS (20 sets, daily range): BP systolic 126–152; BP diastolic 55–99
[2021-05-22] MEDS: oxyCODONE/APAP 5/325MG (PERCOCET 5) TABLET PO PRN ×5 (01:56→20:59)
[2021-05-22] MEDS: RT-ALBUTEROL HFA 8.5 GM INHALER IH SCH ×7 (02:29→22:08)
[2021-05-22 06:10] LABS: BASOPHILS # (AUTO) 0.1 10^3/uL (0.0-0.1); BASOPHILS % (AUTO) 0 % (0-10); EOSINOPHILS % (AUTO) 0 % (0-10); HEMATOCRIT 36 % (35-52); HEMOGLOBIN 11.9 g/dL (11.5-16.0); LYMPHOCYTES # (AUTO) 1.8 10^3/uL (1.0-4.0); LYMPHOCYTES % (AUTO) 13 % (12-44); MEAN CORPUSCULAR HEMOGLOBIN 28 pg (25-34); MEAN CORPUSCULAR HGB CONC 34 g/dL (32-36); MEAN CORPUSCULAR VOLUME 85 fL (80-99); MEAN PLATELET VOLUME 10.5 fL (9.0-12.2); MONOCYTES # (AUTO) 0.7 10^3/uL (0.0-1.0); MONOCYTES % (AUTO) 5 % (0-12); NEUTROPHILS # (AUTO) 10.9 10^3/uL (1.8-7.8); NEUTROPHILS % (AUTO) 77 % (42-75); PLATELET COUNT 325 10^3/uL (130-400); WHITE BLOOD COUNT 14.2 10^3/uL (4.3-11.0)
[2021-05-22] MEDS: LACTATED RINGERS 1,000 ML IV SCH ×2 (06:12→20:56)
[2021-05-22 06:23] LABS: ALBUMIN 2.8 GM/DL (3.2-4.5); POTASSIUM 3.5 MMOL/L (3.6-5.0)
[2021-05-22 06:24] LABS: CALCIUM 8.1 MG/DL (8.5-10.1)
[2021-05-22 06:25] LABS: TOTAL PROTEIN 5.2 GM/DL (6.4-8.2)
[2021-05-22 06:27] LABS: BILIRUBIN,TOTAL 0.4 MG/DL (0.1-1.0)
[2021-05-22 06:29] LABS: CREATININE SERUM 0.69 MG/DL (0.60-1.30)
[2021-05-22] MEDS: AZITHROMYCIN 250 MG TAB (ZITHROMAX) PO SCH (09:30)
[2021-05-22] MEDS: cefTRIAXone 1 GM IV (PRE-MIX) 50 ML IV SCH (09:30)
[2021-05-22] MEDS: BENZONATATE 100 MG (TESSALON) CAPSULE PO SCH ×3 (09:30→20:56)
[2021-05-22] MEDS: PANTOPRAZOLE 40 MG (PROTONIX) TAB PO SCH (09:34)
--- NOTE | 2021-05-22 10:29 | Tele-ICU Progress Note ---
Subjective Date Seen by a Provider: May 22, 2021 Time Seen by a Provider: 10:28 Subjective/Events-last exam Patient today is awake alert and tolerating Vapotherm well. She is currently at 30 L and 100% FiO2. Oxygen saturation is about 94%. She is feeling much better on the side measures when she is lying down. She is a self proning and tolerating fairly well. Blood pressure is stable. Video visit made and discussed with the patient also subsequently discussed with the RHEOSTAT ASSEMBLER. Review of Systems ros per attending Sepsis Event Evaluation Height, Weight, BMI Height: '" Weight: lbs. oz. kg; 30.71 BMI Method: Exam Exam Patient acknowledged, consented, and participated in this virtual visit which was conducted using real time audio/video Vital Signs Date Time Temp Pulse Resp B/P (MAP) Pulse Ox O2 Delivery O2 Flow Rate FiO2 05/22/21 09:15 91 22 89 Vapotherm 05/22/21 09:00 79 9 147/79 (112) 92 Vapotherm 05/22/21 08:45 75 10 96 Vapotherm 05/22/21 08:30 80 17 97 Vapotherm 05/22/21 08:22 35.4 96 90 100 05/22/21 08:15 70 25 96 Vapotherm 05/22/21 08:00 75 23 94 Vapotherm 05/22/21 08:00 35.4 05/22/21 07:45 90 29 95 Vapotherm 05/22/21 07:30 11 91 Vapotherm 05/22/21 07:15 78 47 95 Vapotherm 05/22/21 07:00 71 05/22/21 07:00 92 93 Vapotherm 05/22/21 06:29 90 Vapotherm 30.00 100 05/22/21 06:00 74 17 136/80 (98) 93 Vapotherm 30.00 90.00 05/22/21 05:00 70 19 137/90 (106) 93 Vapotherm 30.00 90.00 05/22/21 04:00 83 19 136/55 (82) 89 Vapotherm 30.00 90.00 05/22/21 04:00 Vapotherm 30.00 100 05/22/21 03:00 84 24 137/76 (96) 91 Vapotherm 30.00 90.00 05/22/21 02:30 94 Vapotherm 30.00 100 05/22/21 02:00 75 24 93 Vapotherm 30.00 90.00 05/22/21 01:00 85 20 133/75 (94) 92 Vapotherm 30.00 90.00 05/22/21 01:00 86 05/22/21 00:00 71 27 135/71 (92) 93 Vapotherm 30.00 90.00 05/22/21 00:00 Vapotherm 30.00 100 05/21/21 23:00 74 27 132/69 (90) 94 Vapotherm 30.00 90.00 05/21/21 22:50 94 30.00 100 05/21/21 22:00 82 26 130/69 (89) 95 Vapotherm 30.00 90.00 05/21/21 21:00 105 4 176/107 (130) 93 Vapotherm 30.00 90.00 05/21/21 20:00 102 34 147/104 (118) 94 Vapotherm 30.00 90.00 05/21/21 20:00 37.0 05/21/21 20:00 Vapotherm 30.00 100 05/21/21 19:00 111 31 123/82 (96) 95 Vapotherm 30.00 90.00 05/21/21 19:00 110 05/21/21 18:57 86 Vapotherm 30.00 90 05/21/21 18:00 Vapotherm 30.00 90.00 05/21/21 18:00 92 28 119/91 (100) 89 Vapotherm 30.00 90.00 05/21/21 17:00 89 131/84 (100) 97 Vapotherm 20.00 100.00 05/21/21 16:30 36.7 05/21/21 16:00 90 27 123/76 (92) 94 Vapotherm 20.00 100.00 05/21/21 15:38 37.0 120 93 21 05/21/21 15:00 100 26 133/93 (114) 96 Vapotherm 20.00 100.00 05/21/21 14:34 96 Vapotherm 30.00 100 05/21/21 14:00 92 33 143/97 (103) 96 Vapotherm 20.00 100.00 05/21/21 13:00 100 05/21/21 13:00 93 24 151/95 (123) 97 Vapotherm 20.00 100.00 05/21/21 12:05 35.7 05/21/21 12:00 98 28 149/97 (114) 97 Vapotherm 20.00 100.00 05/21/21 11:00 152/111 (125) 93 Vapotherm 20.00 100.00 I & O 05/22/21 07:00 Intake Total 3310 ml Output Total 2925 ml Balance 385 ml Height & Weight Height: '" Weight: lbs. oz. kg; 30.71 BMI Method: General Appearance: Anxious, Mild Distress (uncomfortable), Obese HEENT: PERRL/EOMI, Pharynx Normal Neck: Normal Inspection, Supple Respiratory: Lungs Clear, Normal Breath Sounds, No Respiratory Distress Cardiovascular: Regular Rate, Rhythm, No Edema, No Murmur Capillary Refill: Less Than 3 Seconds Extremity: Normal Inspection, Non Tender, No Pedal Edema Neurologic/Psychiatric: Alert, Oriented x3, No Motor/Sensory Deficits Skin: Normal Color, Warm/Dry Other comments PE PER ATTENDING. Results Lab Laboratory Tests 05/21/21 04:50 05/22/21 04:35 Assessment/Plan Assessment/Plan 1. Acute Covid19 pneumonia 2. Acute hypoxic respiratory failure due to Covid19 pneumonia 3. Superadded bacterial pneumonia cannot be ruled out 4. Chronic pain syndrome. Recommendations 1. Continue IV dexamethasone 2. IV antibiotics per primary care physician 3. DVT prophylaxis 4. Albuterol nebulizer treatment as needed. 5. Continue Vapotherm and wean FiO2 as tolerated. 6. Prognosis is guarded. Critical Care: Critically Ill Patient Time spent with patient (mins): 25 MELANIE ARCHULETA MD May 22, 2021 10:29
[2021-05-22] MEDS: ENOXAPARIN 40 MG/0.4 ML (LOVENOX) SYR SC SCH (18:36)
--- NOTE | 2021-05-22 21:17 | Progress Note - Hospitalist ---
Subjective HPI/CC On Admission Date Seen by Provider: May 22, 2021 Time Seen by Provider: 09:35 Orly Rai is a 56 year old female with PMH HTN, GERD, who presented with shortness of breath. Her symptoms started one week ago. She has been having fevers and chills. She has been having cough. She reports diarrhea. She reports nausea with coughing. She denies abdominal pain. She is not vaccinated against COVID. She was seen in the ER yesterday and was not requiring oxygen and was given the monoclonal antibody infusion. She was walking prior to being discharged and became hypoxic. Subjective/Events-last exam She is feeling a bit better today. Her cough is better with cough medicine. She is not having fevers. Her appetite is improving. Objective Exam Vital Signs Vital Signs Date Time Temp Pulse Resp B/P (MAP) Pulse Ox O2 Delivery O2 Flow Rate FiO2 05/22/21 20:48 36.3 05/22/21 19:09 Vapotherm 05/22/21 19:00 30.00 95.00 05/22/21 19:00 97 05/22/21 18:21 95 100 05/22/21 18:00 24 Capillary Refill : Less Than 3 Seconds General Appearance: No Apparent Distress, Obese Respiratory: Lungs Clear, Normal Breath Sounds, No Respiratory Distress Cardiovascular: Regular Rate, Rhythm, No Edema, No Murmur Gastrointestinal: Normal Bowel Sounds, Non Tender, Soft Extremity: Normal Inspection, Non Tender, No Pedal Edema Neurologic/Psychiatric: Alert, Oriented x3, No Motor/Sensory Deficits, Normal Mood/Affect Skin: Normal Color, Warm/Dry Results/Procedures Lab Laboratory Tests 05/22/21 04:35 Patient resulted labs reviewed. Imaging: Reviewed Imaging Report Assessment/Plan Assessment and Plan Assess & Plan/Chief Complaint Acute respiratory failure due to COVID-19 Secondary bacterial pneumonia Requiring near maximal support with Vapotherm High risk for intubation s/p monoclonal antibody infusion 05/18 Continue Decadron s/p Actemra 05/19 Continue Rocephin and Azithromycin Prophylactic Lovenox TeleICU following HTN Hold home meds Monitor GERD Continue PPI Obesity Clinically significant, no acute management needs DVT prophylaxis: Lovenox Acute kidney injury, resolved Critical Care Critically Ill Patient Diagnosis/Problems Diagnosis/Problems (1) Acute respiratory failure Status: Acute Qualifiers: Respiratory failure complication: hypoxia Qualified Codes: J96.01 - Acute respiratory failure with hypoxia (2) Pneumonia due to COVID-19 virus Status: Acute (3) Secondary bacterial pneumonia Status: Acute (4) CHESTER (acute kidney injury) Status: Resolved Resolution Date/Time: 05/20/21 @ 12:03 (5) Obesity Status: Chronic (6) HTN (hypertension) Status: Chronic (7) GERD (gastroesophageal reflux disease) Status: Chronic SHAMIKA CORONADO MD May 22, 2021 21:17
[2021-05-23] VITALS (22 sets, daily range): BP systolic 133–163; BP diastolic 78–105
[2021-05-23] MEDS: RT-ALBUTEROL HFA 8.5 GM INHALER IH SCH ×6 (02:02→22:05)
[2021-05-23] MEDS: oxyCODONE/APAP 5/325MG (PERCOCET 5) TABLET PO PRN ×5 (02:16→20:53)
[2021-05-23 02:18] LABS: ABG BASE EXCESS 3.7 MMOL/L (-2.5-2.5); ABG OXYGEN SATURATION 92 % (94-100); ABG PCO2 41 MMHG (35-45); ABG PH 7.45 (7.37-7.43); ABG PO2 65 MMHG (79-93); ABG TCO2 28.8 MMOL/L (21.0-31.0)
[2021-05-23 02:19] LABS: ALLENS TEST YES-POS; INSPIRED O2 VAPOTHERM 30L 95%; PATIENT TEMP 36.9; VENTILATOR NO
[2021-05-23 06:01] LABS: BASOPHILS # (AUTO) 0.1 10^3/uL (0.0-0.1); BASOPHILS % (AUTO) 1 % (0-10); EOSINOPHILS % (AUTO) 0 % (0-10); HEMATOCRIT 37 % (35-52); HEMOGLOBIN 12.4 g/dL (11.5-16.0); LYMPHOCYTES # (AUTO) 2.4 10^3/uL (1.0-4.0); LYMPHOCYTES % (AUTO) 15 % (12-44); MEAN CORPUSCULAR HEMOGLOBIN 28 pg (25-34); MEAN CORPUSCULAR HGB CONC 33 g/dL (32-36); MEAN CORPUSCULAR VOLUME 84 fL (80-99); MEAN PLATELET VOLUME 10.1 fL (9.0-12.2); MONOCYTES # (AUTO) 0.8 10^3/uL (0.0-1.0); MONOCYTES % (AUTO) 5 % (0-12); NEUTROPHILS # (AUTO) 11.5 10^3/uL (1.8-7.8); NEUTROPHILS % (AUTO) 72 % (42-75); PLATELET COUNT 359 10^3/uL (130-400); WHITE BLOOD COUNT 16.1 10^3/uL (4.3-11.0)
[2021-05-23 06:22] LABS: POTASSIUM 3.9 MMOL/L (3.6-5.0)
[2021-05-23 06:23] LABS: CALCIUM 8.3 MG/DL (8.5-10.1)
[2021-05-23 06:24] LABS: TOTAL PROTEIN 5.4 GM/DL (6.4-8.2)
[2021-05-23 06:26] LABS: BILIRUBIN,TOTAL 0.5 MG/DL (0.1-1.0)
[2021-05-23 06:28] LABS: CREATININE SERUM 0.68 MG/DL (0.60-1.30)
[2021-05-23 07:24] LABS: BAND NEUTROPHILS 1 %; LYMPHOCYTES % (MANUAL) 11 %; METAMYELOCYTES % 1 %; MONOCYTES % (MANUAL) 2 %; MYELOCYTES % 3 %; NEUTROPHILS % (MANUAL) 82 %
--- NOTE | 2021-05-23 08:13 | Tele-ICU Progress Note ---
Progress Note video rounds completed 56 y/o femle with covid PNA and hypoxemia Tolerating vapotherm and HFNC PRN PE: comfortable in bed vitals signs normal ABG this am: 7.45/41/65/28 Focused Exam Height, Weight, BMI Height: '" Weight: lbs. oz. kg; 30.71 BMI Method: Laboratory Tests 05/23/21 04:30 Labs Labs Laboratory Tests 05/23/21 02:14: Blood Gas Puncture Site RIGHT RADIAL, Blood Gas Patient Temperature 36.9, Arterial Blood pH 7.45H, Arterial Blood Partial Pressure CO2 41, Arterial Blood Partial Pressure O2 65L, Arterial Blood HCO3 28H, Arterial Blood Total CO2 28.8, Arterial Blood Oxygen Saturation 92L, Arterial Blood Base Excess 3.7H, Andrew Test YES-POS, Blood Gas Ventilator Setting NO, Blood Gas Inspired Oxygen VAPOTHERM 30L 95% 05/23/21 04:30: White Blood Count 16.1H, Red Blood Count 4.40, Hemoglobin 12.4, Hematocrit 37, Mean Corpuscular Volume 84, Mean Corpuscular Hemoglobin 28, Mean Corpuscular Hemoglobin Concent 33, Red Cell Distribution Width 13.2, Platelet Count 359, Mean Platelet Volume 10.1, Immature Granulocyte % (Auto) 7, Neutrophils (%) (Auto) 72, Lymphocytes (%) (Auto) 15, Monocytes (%) (Auto) 5, Eosinophils (%) (Auto) 0, Basophils (%) (Auto) 1, Neutrophils # (Auto) 11.5H, Lymphocytes # (Auto) 2.4, Monocytes # (Auto) 0.8, Eosinophils # (Auto) 0.0, Basophils # (Auto) 0.1, Immature Granulocyte # (Auto) 1.2H, Neutrophils % (Manual) 82, Lymphocytes % (Manual) 11, Monocytes % (Manual) 2, Metamyelocytes % 1, Myelocytes % 3, Band Neutrophils 1, Sodium Level 138, Potassium Level 3.9, Chloride Level 101, Carbon Dioxide Level 26, Anion Gap 11, Blood Urea Nitrogen 13, Creatinine 0.68, Estimat Glomerular Filtration Rate 89, BUN/Creatinine Ratio 19, Glucose Level 90, Calcium Level 8.3L, Corrected Calcium 9.1, Total Bilirubin 0.5, Aspartate Amino Transf (AST/SGOT) 84H, Alanine Aminotransferase (ALT/SGPT) 79H, Alkaline Phosphatase 59, Total Protein 5.4L, Albumin 3.0L Microbiology 05/18/21 Blood Culture - Preliminary, Resulted No growth SEEMA DONG MD May 23, 2021 08:13
[2021-05-23] MEDS: LACTATED RINGERS 1,000 ML IV SCH ×2 (08:14→20:55)
[2021-05-23] MEDS: cefTRIAXone 1 GM IV (PRE-MIX) 50 ML IV SCH (08:15)
[2021-05-23] MEDS: PANTOPRAZOLE 40 MG (PROTONIX) TAB PO SCH (08:15)
[2021-05-23] MEDS: BENZONATATE 100 MG (TESSALON) CAPSULE PO SCH ×3 (08:15→20:53)
--- NOTE | 2021-05-23 11:58 | Progress Note - Hospitalist ---
Subjective HPI/CC On Admission Date Seen by Provider: May 23, 2021 Time Seen by Provider: 10:40 Orly Rai is a 56 year old female with PMH HTN, GERD, who presented with shortness of breath. Her symptoms started one week ago. She has been having fevers and chills. She has been having cough. She reports diarrhea. She reports nausea with coughing. She denies abdominal pain. She is not vaccinated against COVID. She was seen in the ER yesterday and was not requiring oxygen and was given the monoclonal antibody infusion. She was walking prior to being discharged and became hypoxic. Subjective/Events-last exam She is feeling better. She is not as short of breath. She is still coughing up phlegm. She is using her incentive spirometer. She is not having fevers. Objective Exam Vital Signs Vital Signs Date Time Temp Pulse Resp B/P (MAP) Pulse Ox O2 Delivery O2 Flow Rate FiO2 05/23/21 10:57 94 Vapotherm 30.00 80 05/23/21 09:00 86 22 158/99 (122) 05/23/21 02:20 36.8 Capillary Refill : Less Than 3 Seconds General Appearance: No Apparent Distress, Obese Respiratory: Lungs Clear, Normal Breath Sounds, No Respiratory Distress Cardiovascular: Regular Rate, Rhythm, No Edema, No Murmur Gastrointestinal: Normal Bowel Sounds, Non Tender, Soft Extremity: Normal Inspection, Non Tender, No Pedal Edema Neurologic/Psychiatric: Alert, Oriented x3, No Motor/Sensory Deficits, Normal Mood/Affect Skin: Normal Color, Warm/Dry Results/Procedures Lab Laboratory Tests 05/23/21 04:30 Patient resulted labs reviewed. Imaging: Reviewed Imaging Report Assessment/Plan Assessment and Plan Assess & Plan/Chief Complaint Acute respiratory failure due to COVID-19 Secondary bacterial pneumonia Elevated LFTs Requiring Vapotherm, improved slightly this morning s/p monoclonal antibody infusion 05/18 Continue Decadron s/p Actemra 05/19 Continue Rocephin and Azithromycin Prophylactic Lovenox TeleICU following HTN Hold home meds Monitor GERD Continue PPI Obesity Clinically significant, no acute management needs DVT prophylaxis: Lovenox Acute kidney injury, resolved Critical Care Critically Ill Patient Diagnosis/Problems Diagnosis/Problems (1) Acute respiratory failure Status: Acute Qualifiers: Respiratory failure complication: hypoxia Qualified Codes: J96.01 - Acute respiratory failure with hypoxia (2) Pneumonia due to COVID-19 virus Status: Acute (3) Secondary bacterial pneumonia Status: Acute (4) CHESTER (acute kidney injury) Status: Resolved Resolution Date/Time: 05/20/21 @ 12:03 (5) Obesity Status: Chronic (6) HTN (hypertension) Status: Chronic (7) GERD (gastroesophageal reflux disease) Status: Chronic SHAMIKA CORONADO MD May 23, 2021 11:58
[2021-05-23] MEDS: RT-ALBUTEROL HFA 8.5 GM INHALER IH PRN (15:56)
[2021-05-23] MEDS: ENOXAPARIN 40 MG/0.4 ML (LOVENOX) SYR SC SCH (18:46)
[2021-05-24] VITALS (18 sets, daily range): BP systolic 109–152; BP diastolic 68–92
[2021-05-24] MEDS: RT-ALBUTEROL HFA 8.5 GM INHALER IH SCH ×6 (02:22→21:26)
[2021-05-24] MEDS: oxyCODONE/APAP 5/325MG (PERCOCET 5) TABLET PO PRN ×5 (02:41→20:12)
[2021-05-24 04:57] LABS: BASOPHILS # (AUTO) 0.1 10^3/uL (0.0-0.1); BASOPHILS % (AUTO) 1 % (0-10); EOSINOPHILS % (AUTO) 0 % (0-10); HEMATOCRIT 36 % (35-52); LYMPHOCYTES # (AUTO) 2.7 10^3/uL (1.0-4.0); LYMPHOCYTES % (AUTO) 14 % (12-44); MEAN CORPUSCULAR HEMOGLOBIN 28 pg (25-34); MEAN CORPUSCULAR HGB CONC 34 g/dL (32-36); MEAN CORPUSCULAR VOLUME 85 fL (80-99); MEAN PLATELET VOLUME 9.7 fL (9.0-12.2); MONOCYTES % (AUTO) 5 % (0-12); NEUTROPHILS # (AUTO) 14.5 10^3/uL (1.8-7.8); NEUTROPHILS % (AUTO) 73 % (42-75); PLATELET COUNT 389 10^3/uL (130-400); WHITE BLOOD COUNT 19.9 10^3/uL (4.3-11.0)
[2021-05-24 05:10] LABS: POTASSIUM 3.7 MMOL/L (3.6-5.0)
[2021-05-24 05:11] LABS: CALCIUM 8.3 MG/DL (8.5-10.1)
[2021-05-24 05:12] LABS: TOTAL PROTEIN 5.2 GM/DL (6.4-8.2)
[2021-05-24 05:14] LABS: BILIRUBIN,TOTAL 0.6 MG/DL (0.1-1.0)
[2021-05-24 05:16] LABS: CREATININE SERUM 0.68 MG/DL (0.60-1.30)
[2021-05-24 05:39] LABS: PHOSPHORUS 3.9 MG/DL (2.3-4.7)
[2021-05-24 05:41] LABS: MAGNESIUM 1.9 MG/DL (1.6-2.4)
[2021-05-24] MEDS: BENZONATATE 100 MG (TESSALON) CAPSULE PO SCH ×3 (08:48→20:12)
[2021-05-24] MEDS: LACTATED RINGERS 1,000 ML IV SCH ×2 (08:48→23:06)
[2021-05-24] MEDS: PANTOPRAZOLE 40 MG (PROTONIX) TAB PO SCH (08:48)
--- NOTE | 2021-05-24 10:36 | Tele-ICU Progress Note ---
Subjective Date Seen by a Provider: May 24, 2021 Time Seen by a Provider: 09:45 Subjective/Events-last exam Patient today is awake alert and on Vapotherm. Tolerating well. She states that she is feeling better. However her white count went up. She is not on any antibiotics. Video visit made and assessment made. However physical examination per attending physician. Reviewed with dynamiter of Systems ros per attending Sepsis Event Evaluation Height, Weight, BMI Height: '" Weight: lbs. oz. kg; 30.71 BMI Method: Exam Exam Patient acknowledged, consented, and participated in this virtual visit which was conducted using real time audio/video Vital Signs Date Time Temp Pulse Resp B/P (MAP) Pulse Ox O2 Delivery O2 Flow Rate FiO2 05/24/21 08:10 98 Vapotherm 30.00 80 05/24/21 08:00 96 Vapotherm 30.00 75 05/24/21 08:00 35.7 05/24/21 06:00 63 19 136/79 (98) Vapotherm 30.00 80.00 05/24/21 05:00 65 22 149/79 (102) Vapotherm 30.00 80.00 05/24/21 04:00 61 21 138/83 (101) Vapotherm 30.00 80.00 05/24/21 03:54 94 Vapotherm 30.00 80 05/24/21 03:00 70 39 144/88 (106) Vapotherm 30.00 80.00 05/24/21 02:42 36.6 Vapotherm 30.00 80.00 05/24/21 02:22 96 Vapotherm 30.00 80 05/24/21 02:00 61 28 134/79 (97) Vapotherm 30.00 80.00 05/24/21 01:00 61 25 139/81 (100) Vapotherm 30.00 80.00 05/24/21 01:00 63 05/24/21 00:00 64 27 144/87 (106) Vapotherm 30.00 80.00 05/23/21 23:50 92 Vapotherm 30.00 80 05/23/21 23:00 36.5 Vapotherm 30.00 80.00 05/23/21 22:06 95 Vapotherm 30.00 80 05/23/21 21:00 75 11 153/105 (121) Vapotherm 30.00 80.00 05/23/21 20:00 77 23 146/87 (106) Vapotherm 30.00 80.00 05/23/21 20:00 36.7 05/23/21 20:00 93 Vapotherm 30.00 80 05/23/21 19:00 80 21 152/85 (107) Vapotherm 30.00 80.00 05/23/21 19:00 82 05/23/21 19:00 Vapotherm 30.00 80.00 05/23/21 18:44 94 Vapotherm 30.00 80 05/23/21 18:00 80 11 146/103 (117) 92 Vapotherm 30.00 95.00 05/23/21 17:00 70 135/78 (97) 94 Vapotherm 30.00 95.00 05/23/21 16:34 36.0 05/23/21 16:00 94 Vapotherm 30.00 75 05/23/21 16:00 80 149/92 (111) 92 Vapotherm 30.00 95.00 05/23/21 15:57 93 Vapotherm 30.00 75 05/23/21 15:56 95 Vapotherm 30.00 80 05/23/21 15:00 80 16 142/82 (102) 93 Vapotherm 30.00 95.00 05/23/21 14:00 80 9 141/80 (100) 96 Vapotherm 30.00 95.00 05/23/21 13:25 Vapotherm 80.00 05/23/21 13:00 94 05/23/21 13:00 87 18 163/94 (117) 95 Vapotherm 30.00 95.00 05/23/21 12:00 94 Vapotherm 30.00 80 05/23/21 12:00 36.6 05/23/21 12:00 83 36 146/92 (110) 95 Vapotherm 30.00 95.00 05/23/21 11:00 85 138/80 (99) 93 Vapotherm 30.00 95.00 05/23/21 10:57 94 Vapotherm 30.00 80 I & O 05/24/21 07:00 Intake Total 3675 ml Output Total 5450 ml Balance -1775 ml Height & Weight Height: '" Weight: lbs. oz. kg; 30.71 BMI Method: General Appearance: No Apparent Distress, Obese HEENT: PERRL/EOMI, Pharynx Normal Neck: Normal Inspection, Supple Respiratory: Lungs Clear, Normal Breath Sounds, No Respiratory Distress Cardiovascular: Regular Rate, Rhythm, No Edema, No Murmur Capillary Refill: Less Than 3 Seconds Extremity: Normal Inspection, Non Tender, No Pedal Edema Neurologic/Psychiatric: Alert, Oriented x3, No Motor/Sensory Deficits, Normal Mood/Affect Skin: Normal Color, Warm/Dry Results Lab Laboratory Tests 05/23/21 04:30 05/24/21 04:40 Assessment/Plan Assessment/Plan 1. Acute Covid19 pneumonia 2. Acute hypoxic respiratory failure due to Covid19 pneumonia 3. Superadded bacterial pneumonia cannot be ruled out 4. Chronic pain syndrome. 5. leucocytosis r/o sepsis Recommendations 1. Continue IV dexamethasone 2. will add maxipime 3. DVT prophylaxis 4. Albuterol nebulizer treatment as needed. 5. Continue Vapotherm and wean FiO2 as tolerated. 6. repeat blood c/s Critical Care: Critically Ill Patient Time spent with patient (mins): 25 MELANIE ARCHULETA MD May 24, 2021 10:36
[2021-05-24] MEDS: CEFEPIME INJECTION 1,000 MG in NS (IVPB) 50 ML IV SCH ×3 (12:01→23:07)
--- NOTE | 2021-05-24 18:23 | Progress Note - Hospitalist ---
Subjective HPI/CC On Admission Date Seen by Provider: May 24, 2021 Time Seen by Provider: 11:30 Orly Rai is a 56 year old female with PMH HTN, GERD, who presented with shortness of breath. Her symptoms started one week ago. She has been having fevers and chills. She has been having cough. She reports diarrhea. She reports nausea with coughing. She denies abdominal pain. She is not vaccinated against COVID. She was seen in the ER yesterday and was not requiring oxygen and was given the monoclonal antibody infusion. She was walking prior to being discharged and became hypoxic. Subjective/Events-last exam She is doing better. She is sitting in her chair. She has been using her incentive spirometer. Her cough is getting better. Her appetite is improving. Objective Exam Vital Signs Vital Signs Date Time Temp Pulse Resp B/P (MAP) Pulse Ox O2 Delivery O2 Flow Rate FiO2 05/24/21 16:28 36.4 87 95 55 05/24/21 15:00 Vapotherm 30.00 75.00 05/24/21 14:00 30 Capillary Refill : Less Than 3 Seconds General Appearance: No Apparent Distress, Obese Respiratory: Lungs Clear, Normal Breath Sounds, No Respiratory Distress Cardiovascular: Regular Rate, Rhythm, No Edema, No Murmur Gastrointestinal: Normal Bowel Sounds, Non Tender, Soft Extremity: Normal Inspection, Non Tender, No Pedal Edema Neurologic/Psychiatric: Alert, Oriented x3, No Motor/Sensory Deficits, Normal Mood/Affect Skin: Normal Color, Warm/Dry Results/Procedures Lab Laboratory Tests 05/24/21 04:40 Patient resulted labs reviewed. Imaging: Reviewed Imaging Report Assessment/Plan Assessment and Plan Assess & Plan/Chief Complaint Acute respiratory failure due to COVID-19 Secondary bacterial pneumonia Elevated LFTs Requiring Vapotherm, improving s/p monoclonal antibody infusion 05/18 Continue Decadron s/p Actemra 05/19 Continue antibiotics Prophylactic Lovenox TeleICU following Transfer to 4th floor HTN Hold home meds Monitor GERD Continue PPI Obesity Clinically significant, no acute management needs DVT prophylaxis: Lovenox Acute kidney injury, resolved Diagnosis/Problems Diagnosis/Problems (1) Acute respiratory failure Status: Acute Qualifiers: Respiratory failure complication: hypoxia Qualified Codes: J96.01 - Acute respiratory failure with hypoxia (2) Pneumonia due to COVID-19 virus Status: Acute (3) Secondary bacterial pneumonia Status: Acute (4) CHESTER (acute kidney injury) Status: Resolved Resolution Date/Time: 05/20/21 @ 12:03 (5) Obesity Status: Chronic (6) HTN (hypertension) Status: Chronic (7) GERD (gastroesophageal reflux disease) Status: Chronic SHAMIKA CORONADO MD May 24, 2021 18:22
[2021-05-24] MEDS: ENOXAPARIN 40 MG/0.4 ML (LOVENOX) SYR SC SCH (18:48)
[2021-05-25] MEDS: RT-ALBUTEROL HFA 8.5 GM INHALER IH SCH ×6 (02:22→21:44)
[2021-05-25] MEDS: CEFEPIME INJECTION 1,000 MG in NS (IVPB) 50 ML IV SCH ×4 (04:52→23:37)
[2021-05-25] MEDS: oxyCODONE/APAP 5/325MG (PERCOCET 5) TABLET PO PRN ×2 (04:52→17:30)
[2021-05-25 04:53] VITALS: BP 144/74
[2021-05-25 06:17] LABS: BASOPHILS # (AUTO) 0.2 10^3/uL (0.0-0.1); BASOPHILS % (AUTO) 1 % (0-10); EOSINOPHILS # (AUTO) 0.1 10^3/uL (0.0-0.3); EOSINOPHILS % (AUTO) 1 % (0-10); HEMATOCRIT 35 % (35-52); HEMOGLOBIN 11.9 g/dL (11.5-16.0); LYMPHOCYTES # (AUTO) 3.9 10^3/uL (1.0-4.0); LYMPHOCYTES % (AUTO) 18 % (12-44); MEAN CORPUSCULAR HEMOGLOBIN 29 pg (25-34); MEAN CORPUSCULAR HGB CONC 34 g/dL (32-36); MEAN CORPUSCULAR VOLUME 86 fL (80-99); MEAN PLATELET VOLUME 9.8 fL (9.0-12.2); MONOCYTES % (AUTO) 5 % (0-12); NEUTROPHILS # (AUTO) 14.2 10^3/uL (1.8-7.8); NEUTROPHILS % (AUTO) 67 % (42-75); PLATELET COUNT 404 10^3/uL (130-400); WHITE BLOOD COUNT 21.4 10^3/uL (4.3-11.0)
[2021-05-25 06:34] LABS: POTASSIUM 3.8 MMOL/L (3.6-5.0)
[2021-05-25 06:35] LABS: CALCIUM 8.5 MG/DL (8.5-10.1)
[2021-05-25 06:37] LABS: TOTAL PROTEIN 5.3 GM/DL (6.4-8.2)
[2021-05-25 06:38] LABS: BILIRUBIN,TOTAL 0.6 MG/DL (0.1-1.0)
[2021-05-25 06:40] LABS: CREATININE SERUM 0.72 MG/DL (0.60-1.30)
[2021-05-25 08:00] VITALS: BP 146/91
[2021-05-25] MEDS: PANTOPRAZOLE 40 MG (PROTONIX) TAB PO SCH (08:12)
[2021-05-25] MEDS: BENZONATATE 100 MG (TESSALON) CAPSULE PO SCH ×3 (08:13→19:53)
--- NOTE | 2021-05-25 11:49 | Diagnostic Imaging Report ---
Indication: Pneumonia. TIME OF EXAM: 11:05 AM Correlation is made with prior chest from 05/21/2021. Heart size stable. Infiltrate throughout the right lung persist. Infiltrate in the left lung has improved particularly in the mid lung field. There is some residual infiltrate or atelectasis in the left base. Left hemidiaphragm remains elevated. There is no effusion or pneumothorax. There are postoperative changes lower cervical spine. IMPRESSION: Bilateral infiltrates showing some overall improved aeration bilaterally and partial clearing when compared with examination from 4 days earlier. Dictated by: Dictated on workstation # [id number]
[2021-05-25 12:00] VITALS: BP 151/84
[2021-05-25 16:41] VITALS: BP 123/80
[2021-05-25] MEDS: ENOXAPARIN 40 MG/0.4 ML (LOVENOX) SYR SC SCH (17:31)
--- NOTE | 2021-05-25 18:19 | Progress Note - Hospitalist ---
Subjective HPI/CC On Admission Date Seen by Provider: May 25, 2021 Time Seen by Provider: 10:40 Orly Rai is a 56 year old female with PMH HTN, GERD, who presented with shortness of breath. Her symptoms started one week ago. She has been having fevers and chills. She has been having cough. She reports diarrhea. She reports nausea with coughing. She denies abdominal pain. She is not vaccinated against COVID. She was seen in the ER yesterday and was not requiring oxygen and was given the monoclonal antibody infusion. She was walking prior to being discharged and became hypoxic. Subjective/Events-last exam She is feeling better. She is constipated. Her cough is better. Her appetite is good. Objective Exam Vital Signs Vital Signs Date Time Temp Pulse Resp B/P (MAP) Pulse Ox O2 Delivery O2 Flow Rate FiO2 05/25/21 16:41 36.6 79 16 123/80 (94) 95 High Flow N/C 4.00 05/25/21 08:30 40 Capillary Refill : Less Than 3 Seconds General Appearance: No Apparent Distress, Obese Respiratory: Lungs Clear, Normal Breath Sounds, No Respiratory Distress Cardiovascular: Regular Rate, Rhythm, No Edema, No Murmur Gastrointestinal: Normal Bowel Sounds, Non Tender, Soft Extremity: Normal Inspection, Non Tender, No Pedal Edema Neurologic/Psychiatric: Alert, Oriented x3, No Motor/Sensory Deficits, Normal Mood/Affect Skin: Normal Color, Warm/Dry Results/Procedures Lab Laboratory Tests 05/25/21 05:50 Patient resulted labs reviewed. Imaging: Reviewed Imaging Report Assessment/Plan Assessment and Plan Assess & Plan/Chief Complaint Acute respiratory failure due to COVID-19 Secondary bacterial pneumonia Elevated d-dimer Elevated LFTs Transitioned to nasal cannula this morning from Vapotherm s/p monoclonal antibody infusion 05/18 Continue Decadron s/p Actemra 05/19 Continue antibiotics Prophylactic Lovenox TeleICU following HTN Hold home meds Monitor GERD Continue PPI Obesity Clinically significant, no acute management needs DVT prophylaxis: Lovenox Acute kidney injury, resolved Diagnosis/Problems Diagnosis/Problems (1) Acute respiratory failure Status: Acute Qualifiers: Respiratory failure complication: hypoxia Qualified Codes: J96.01 - Acute respiratory failure with hypoxia (2) Pneumonia due to COVID-19 virus Status: Acute (3) Secondary bacterial pneumonia Status: Acute (4) CHESTER (acute kidney injury) Status: Resolved Resolution Date/Time: 05/20/21 @ 12:03 (5) Obesity Status: Chronic (6) HTN (hypertension) Status: Chronic (7) GERD (gastroesophageal reflux disease) Status: Chronic (8) Elevated d-dimer Status: Acute SHAMIKA CORONADO MD May 25, 2021 18:19
[2021-05-25] MEDS ORDERED: polyethylene glycoL POWDER 17 GM (MIRALAX) PACK PO PRN (18:30)
[2021-05-25] MEDS ORDERED: polyethylene glycoL POWDER 17 GM (MIRALAX) PACK PO NR ×2 (18:30→21:00)
[2021-05-25] MEDS ORDERED: DOCUSATE SODIUM 100 MG (COLACE) CAP PO NR ×2 (18:30→21:00)
[2021-05-25] MEDS ORDERED: SENNA W/DOCUSATE (SENOKOT S) TABLET PO NR ×2 (18:30→21:00)
[2021-05-25 19:32] VITALS: BP 120/73
[2021-05-25] MEDS: SENNA W/DOCUSATE (SENOKOT S) TABLET PO SCH (19:53)
[2021-05-25] MEDS: DOCUSATE SODIUM 100 MG (COLACE) CAP PO SCH (20:49)
[2021-05-26] MEDS: RT-ALBUTEROL HFA 8.5 GM INHALER IH SCH ×4 (02:40→14:34)
[2021-05-26 04:00] VITALS: BP 127/78
[2021-05-26 06:19] LABS: BASOPHILS % (AUTO) 0 % (0-10); EOSINOPHILS # (AUTO) 0.2 10^3/uL (0.0-0.3); EOSINOPHILS % (AUTO) 1 % (0-10); HEMATOCRIT 37 % (35-52); HEMOGLOBIN 12.5 g/dL (11.5-16.0); LYMPHOCYTES # (AUTO) 4.6 10^3/uL (1.0-4.0); LYMPHOCYTES % (AUTO) 21 % (12-44); MEAN CORPUSCULAR HEMOGLOBIN 29 pg (25-34); MEAN CORPUSCULAR HGB CONC 33 g/dL (32-36); MEAN CORPUSCULAR VOLUME 87 fL (80-99); MEAN PLATELET VOLUME 9.8 fL (9.0-12.2); MONOCYTES # (AUTO) 1.4 10^3/uL (0.0-1.0); MONOCYTES % (AUTO) 6 % (0-12); NEUTROPHILS # (AUTO) 13.7 10^3/uL (1.8-7.8); NEUTROPHILS % (AUTO) 61 % (42-75); PLATELET COUNT 421 10^3/uL (130-400); WHITE BLOOD COUNT 22.4 10^3/uL (4.3-11.0)
[2021-05-26 06:29] LABS: ALBUMIN 3.2 GM/DL (3.2-4.5); POTASSIUM 4.1 MMOL/L (3.6-5.0)
[2021-05-26 06:32] LABS: TOTAL PROTEIN 5.6 GM/DL (6.4-8.2)
[2021-05-26 06:33] LABS: BILIRUBIN,TOTAL 0.6 MG/DL (0.1-1.0)
[2021-05-26 06:35] LABS: CREATININE SERUM 0.75 MG/DL (0.60-1.30)
[2021-05-26] MEDS: CEFEPIME INJECTION 1,000 MG in NS (IVPB) 50 ML IV SCH ×2 (06:35→12:30)
[2021-05-26 08:00] VITALS: BP 119/78
[2021-05-26] MEDS: PANTOPRAZOLE 40 MG (PROTONIX) TAB PO SCH (08:31)
[2021-05-26] MEDS: BENZONATATE 100 MG (TESSALON) CAPSULE PO SCH ×2 (08:31→12:30)
[2021-05-26] MEDS: DOCUSATE SODIUM 100 MG (COLACE) CAP PO SCH (08:31)
[2021-05-26] MEDS: SENNA W/DOCUSATE (SENOKOT S) TABLET PO SCH (08:32)
[2021-05-26 12:00] VITALS: BP 134/80
--- NOTE | 2021-05-26 12:24 | Discharge Summary ---
Discharge Summary Hospital Course Was the Problem List Reviewed?: Yes Problems/Dx: (1) Acute respiratory failure Status: Acute Qualifiers: Qualified Codes: J96.01 - Acute respiratory failure with hypoxia (2) Pneumonia due to COVID-19 virus Status: Acute (3) Secondary bacterial pneumonia Status: Acute (4) CHESTER (acute kidney injury) Status: Resolved (5) Obesity Status: Chronic (6) HTN (hypertension) Status: Chronic (7) GERD (gastroesophageal reflux disease) Status: Chronic (8) Elevated d-dimer Status: Acute Hospital Course Date of Admission: May 18, 2021 at 16:15 Admission Diagnosis: Acute respiratory failure due to COVID-19 Family Physician/Provider: [facility] Physician Date of Discharge: 05/26/21 Discharge Diagnosis: Acute respiratory failure due to COVID-19 Hospital Course: Orly Rai is a 56 year old female admitted with acute respiratory failure due to COVID-19. She was not requiring oxygen upon arrival to the ER. She was set up and given the monoclonal antibody infusion with plans to discharge home. When she got up to walk her oxygen saturations dropped. She was admitted and started on steroids. Her oxygen saturations continued to worsen and she required Vapotherm. She was given Actemra. Her course was complicated by secondary bacterial pneumonia for which she received a course of antibiotics. Her oxygen saturations improved. She was requiring 2 L continuously and 3-6 L with activity at the time of discharge. She was discharged home in stable condition. She should follow up with her primary care physician. Labs and Pending Lab Test: Laboratory Tests 05/26/21 06:07: White Blood Count 22.4H, Red Blood Count 4.32, Hemoglobin 12.5, Hematocrit 37, Mean Corpuscular Volume 87, Mean Corpuscular Hemoglobin 29, Mean Corpuscular Hemoglobin Concent 33, Red Cell Distribution Width 13.5, Platelet Count 421H, Mean Platelet Volume 9.8, Immature Granulocyte % (Auto) 11, Neutrophils (%) (Auto) 61, Lymphocytes (%) (Auto) 21, Monocytes (%) (Auto) 6, Eosinophils (%) (Auto) 1, Basophils (%) (Auto) 0, Neutrophils # (Auto) 13.7H, Lymphocytes # (Auto) 4.6H, Monocytes # (Auto) 1.4H, Eosinophils # (Auto) 0.2, Basophils # (Auto) 0.0, Immature Granulocyte # (Auto) 2.5H, Sodium Level 137, Potassium Level 4.1, Chloride Level 97L, Carbon Dioxide Level 27, Anion Gap 13, Blood Urea Nitrogen 23H, Creatinine 0.75, Estimat Glomerular Filtration Rate 80, BUN/Creatinine Ratio 31, Glucose Level 84, Calcium Level 9.0, Corrected Calcium 9.6, Total Bilirubin 0.6, Aspartate Amino Transf (AST/SGOT) 86H, Alanine Aminotransferase (ALT/SGPT) 230H, Alkaline Phosphatase 56, Total Protein 5.6L, Albumin 3.2 Microbiology 05/24/21 Blood Culture - Preliminary, Resulted No growth Home Meds Active Reported Doxycycline Hyclate 100 Mg Capsule 100 Mg PO BID Omeprazole 20 Mg Capsule.dr 20 Mg PO BID Estrace Tablet (Estradiol) 0.5 Mg Tablet 0.5 Mg PO DAILY Lisinopril 10 Mg Tablet 10 Mg PO DAILY Advil (Ibuprofen) 200 Mg Tablet 400-600 Mg PO Q8H PRN Zinc 50 Mg Tablet 50 Mg PO DAILY Vitamin D3 (Cholecalciferol (Vitamin D3)) 25 Mcg Tablet 25 Mcg PO DAILY Vitamin C (Ascorbic Acid) 500 Mg Tablet 500 Mg PO DAILY Assessment/Pt Instructions Take medications as prescribed. Follow up with your PCP. Return with worsening shortness of breath, chest pain, or if you feel like you are getting worse. Discharge Planning: <30 minutes discharge planning Discharge Instructions Discharge Diet: No Restrictions Activity as Tolerated: Yes Discharge Physical Examination Vital Signs Vital Signs Date Time Temp Pulse Resp B/P (MAP) Pulse Ox O2 Delivery O2 Flow Rate FiO2 05/26/21 11:04 93 High Flow N/C 2.00 05/26/21 08:00 35.6 82 18 119/78 (92) 05/25/21 08:30 40 General Appearance: No Apparent Distress, Obese HEENT: PERRL/EOMI, Pharynx Normal Respiratory: Lungs Clear, Normal Breath Sounds, No Respiratory Distress Cardiovascular: Regular Rate, Rhythm, No Edema, No Murmur Gastrointestinal: Normal Bowel Sounds, Non Tender, Soft Extremity: Normal Inspection, Non Tender, No Pedal Edema Skin: Normal Color, Warm/Dry Neurologic/Psychiatric: Alert, Oriented x3, No Motor/Sensory Deficits, Normal Mood/Affect Allergies: Coded Allergies: losartan (Verified Adverse Reaction, Unknown, 05/19/21) SEVERE HEADACHES Discharge Summary Date of Admission May 18, 2021 at 16:15 Date of Discharge Discharge Date: May 26, 2021 Discharge Time: 12:22 Admission Diagnosis Acute respiratory failure due to COVID-19 Consults/Procedures Consulations TeleICU Discharge Diagnosis Acute respiratory failure due to COVID-19 (1) Acute respiratory failure Status: Acute Qualifiers: Qualified Codes: J96.01 - Acute respiratory failure with hypoxia (2) Pneumonia due to COVID-19 virus Status: Acute (3) Secondary bacterial pneumonia Status: Acute (4) CHESTER (acute kidney injury) Status: Resolved (5) Obesity Status: Chronic (6) HTN (hypertension) Status: Chronic (7) GERD (gastroesophageal reflux disease) Status: Chronic (8) Elevated d-dimer Status: Acute SHAMIKA CORONADO MD May 26, 2021 12:22
== END 2021-05-26 15:30 | disposition home or self-care (01) | DRG 177 ==
LOC: EDUNIT# 11:08 → ER 11:10 → CSD 16:15 → ICU 05-21 08:40 → 4TH 05-24 17:39
PROVIDERS: ADMIT Internal Medicine; ATTEND Internal Medicine
PROC: XW033G6 Introduction of REGN-COV2 Monoclonal Antibody into Peripheral Vein, Percutaneous Approach, New Technology Group 6 (ICD-10-PCS; principal; 2021-05-18)
PROC: 5A0955A Assistance with Respiratory Ventilation, Greater than 96 Consecutive Hours, High Flow/Velocity Cannula (ICD-10-PCS; 2021-05-18)
PROC: XW033H5 Introduction of Tocilizumab into Peripheral Vein, Percutaneous Approach, New Technology Group 5 (ICD-10-PCS; 2021-05-19)
DX: U07.1 COVID-19 (principal); J12.82 Pneumonia due to coronavirus disease 2019; J96.01 Acute respiratory failure with hypoxia; J15.9 Unspecified bacterial pneumonia; N17.9 Acute kidney failure, unspecified; E66.9 Obesity, unspecified; I10 Essential (primary) hypertension; K21.9 Gastro-esophageal reflux disease without esophagitis; R79.1 Abnormal coagulation profile; D72.829 Elevated white blood cell count, unspecified; Z79.899 Other long term (current) drug therapy; Z68.31 Body mass index [BMI] 31.0-31.9, adult; G89.29 Other chronic pain; Z79.890 Hormone replacement therapy
CPT/HCPCS: 36415; 71045; 80053; 82805; 83605; 83735; 84100; 84145; 85007; 85025; 85027; 85379; 85610; 85730; 86141; 87040; 87636; 94640; 94664; 94760; 94761; 96361; 96365; 96375

== ENCOUNTER 2021-12-12 09:59 | Emergency (ER) | payer BC ==
[~2021-12-12] VITALS: Ht 162 cm; Wt 79.3 kg
[~2021-12-12 09:59] MED LIST: ASCO500T17 PO; CHOL-34 PO; DOXY100C5 PO; ESTR0.5T3 PO; IBUP-30 PO; LISI10TA25 PO; OMEP20CA18 PO; ZINC50TA58 PO
--- NOTE | 2021-12-12 11:36 | ED Cough/URI ---
General Chief Complaint: COVID19 Suspect/Confirmed Stated Complaint: SHIN,DIZZINESS,COUGH,SORE THROAT Nursing Triage Note: PT PRESENTS TO ED VIA POV FROM HOME WITH COMPLAINTS OF CHILLS, BODY ACHES, COUGH, SORE THROAT, AND NASAL CONGESTION SINCE YESTERDAY. PT REPORTS HER HAD SIMILAR SYMPTOMS EARLIER THIS WEEK AND TESTED NEGATIVE AT [facility] OFFICE. Source: patient Exam Limitations: no limitations History of Present Illness Date Seen by Provider: Dec 12, 2021 Time Seen by Provider: 11:31 Initial Comments This is a 56-year-old female that presents to the emergency room for evaluation of a cough, body aches, chills, nasal congestion and a sore throat. She has had symptoms for 2 days and states that her has had symptoms for 5 days. She has not attempted any therapy prior to arrival and nothing specifically makes her symptoms better or worse. She denies chest pain, significant shortness of breath, fever, vomiting, diarrhea Timing/Duration: yesterday Severity/Quality: moderate Allergies and Home Medications Allergies Coded Allergies: losartan (Verified Adverse Reaction, Unknown, 05/19/21) SEVERE HEADACHES Patient Home Medication List Home Medication List Reviewed: Yes Albuterol Sulfate (Proair Hfa) 1 Puff Puff, 2 PUFF IH Q4H Prescribed by: Ady Ta on 12/12/21 1138 Ascorbic Acid (Vitamin C) 500 Mg Tablet, 500 MG PO DAILY, (Reported) Entered as Reported by: ALVARADO STEELE on 05/19/21948 Cholecalciferol (Vitamin D3) (Vitamin D3) 25 Mcg Tablet, 25 MCG PO DAILY, (Reported) Entered as Reported by: ALVARADO STEELE on 05/19/21948 Estradiol (Estrace Tablet) 0.5 Mg Tablet, 0.5 MG PO DAILY, (Reported) Entered as Reported by: ALVARADO STEELE on 05/19/21948 Ibuprofen (Advil) 200 Mg Tablet, 400-600 MG PO Q8H PRN for PAIN-MILD (1-4), (Reported) Entered as Reported by: ALVARADO STEELE on 05/19/21948 Lisinopril (Lisinopril) 10 Mg Tablet, 10 MG PO DAILY, (Reported) Entered as Reported by: ALVARADO STEELE on 05/19/21948 Omeprazole (Omeprazole) 20 Mg Capsule.dr, 20 MG PO BID, (Reported) Entered as Reported by: ALVARADO STEELE on 05/19/21948 Promethazine/Dextromethorphan (Promethazine-Dm Syrup) 6.25 Mg-15 Mg/5 Ml Syrup, 5 ML PO Q6H PRN for COUGH Prescribed by: Ady Ta on 12/12/21 1138 Zinc (Zinc) 50 Mg Tablet, 50 MG PO DAILY, (Reported) Entered as Reported by: ALVARADO STEELE on 05/19/21948 Review of Systems Review of Systems Constitutional: malaise EENTM: nose congestion, throat pain Respiratory: no symptoms reported, cough Cardiovascular: no symptoms reported Gastrointestinal: no symptoms reported Genitourinary: no symptoms reported : No Musculoskeletal: no symptoms reported Skin: no symptoms reported Psychiatric/Neurological: No Symptoms Reported Hematologic/Lymphatic: No Symptoms Reported Immunological/Allergic: no symptoms reported Past Eezrdxc-Nfjhzq-Psjhal Hx Patient Social History Tobacco Use?: No Substance use?: No Alcohol Use?: No Pt feels they are or have been: No Immunizations Up To Date First/Initial COVID19 Vaccinat: NONE Second COVID19 Vaccination Brian: NONE Third COVID19 Vaccination Date: NONE Past Medical History Surgery/Hospitalization HX: Neck Surgery, Hiatal hernia, Hysterectomy Hypertension Gastroesophageal Reflux Family Medical History No Pertinent Family Hx Physical Exam Vital Signs - First Documented 12/12/21 10:00 Temp 37.6 Pulse 115 Resp 18 B/P (MAP) 149/100 (116) Pulse Ox 99 Capillary Refill : Less Than 3 Seconds Height: '" Weight: lbs. oz. kg; 30.00 BMI Method: General Appearance: WD/WN, no apparent distress HEENT: PERRL/EOMI, TMs normal, pharyngeal erythema Neck: non-tender, full range of motion Respiratory: chest non-tender, lungs clear, normal breath sounds, no respiratory distress Cardiovascular: tachycardia Gastrointestinal: normal bowel sounds, non tender Extremities: non-tender Neurologic/Psychiatric: blue line trimmer II-XII nml as tested, alert, oriented x 3 Skin: normal color Lymphatic: no adenopathy Progress/Results/Core Measures Suspected Sepsis SIRS Temperature: Pulse: 115 Respiratory Rate: 18 Blood Pressure 149 /100 Mean: 116 Results/Orders Lab Results Laboratory Tests Test 12/12/21 10:10 Range/Units Influenza Type A (RT-PCR) Not Detected Not Detecte Influenza Type B (RT-PCR) Not Detected Not Detecte SARS-CoV-2 RNA (RT-PCR) Detected H Not Detecte My Orders Orders - MACIEL TA Rx-Nirmatrelvir/Ritonavir(Eua) (Rx-Paxlo (12/12/21 21:00) Rx-Nirmatrelvir/Ritonavir(Eua) (Rx-Paxlo (12/12/21 12:04) Vital Signs/I&O 12/12/21 12/12/21 10:00 12:07 Temp 37.6 37.6 Pulse 115 100 Resp 18 18 B/P (MAP) 149/100 (116) 138/100 Pulse Ox 99 99 Capillary Refill : Less Than 3 Seconds Blood Pressure Mean: 116 Departure Communication (Admissions) Patient is afebrile, nontoxic and in no distress. She had slight tachycardia lung sounds are clear and her pulse ox was 99%. She did test positive for COVID-19. No evidence or suspicion of significant pneumonia, sepsis, respiratory distress. We will start patient on symptomatic therapy. Impression Primary Impression: COVID-19 virus infection Disposition: HOME, SELF-CARE Condition: Stable Departure-Patient Inst. Decision time for Depature: 11:35 Referrals: ALMA MARQUEZ MD (PCP/Family) Primary Care Physician Patient Instructions: COVID-19 Home Care/Discharge, COVID-19 (DC) Add. Discharge Instructions: Please follow CDC guidelines for quarantine. Follow-up with your primary care doctor as needed. Return to the emergency room with any severe changes or worsening of your symptoms. All discharge instructions reviewed with patient and/or family. Voiced understanding. Scripts Promethazine/Dextromethorphan (Promethazine-Dm Syrup) 6.25 Mg-15 Mg/5 Ml Syrup 5 ML PO Q6H PRN for COUGH for 7 Days, #240 ML Prov: MACIEL TA 12/12/21 Albuterol Sulfate (PROAIR HFA) 1 Puff Puff 2 PUFF IH Q4H for Cough for 7 Days, #1 EA 1 PUFF = 90 MCG Prov: MACIEL TA 12/12/21 MACIEL TA Dec 12, 2021 11:36
[2021-12-12] MEDS ORDERED: RT-ALBUINH IH ×2 (11:38→12:21)
[2021-12-12] MEDS ORDERED: D-ME473S11 PO ×2 (11:38→12:21)
[2021-12-12] MEDS ORDERED: RX-NIRMATRELVIR/RITONAVIR (PAXLOVID) #30 TABS PO ONE (12:04)
[2021-12-12 12:07] VITALS: BP 138/100
[2021-12-12] MEDS ORDERED: RX-NIRMATRELVIR/RITONAVIR (PAXLOVID) #30 TABS PO SCH (21:00)
== END 2021-12-12 12:07 | disposition home or self-care (01) ==
LOC: EDUNIT# 09:59 → ER 10:01
DX: U07.1 COVID-19 (principal); Z28.310 Unvaccinated for COVID-19
CPT/HCPCS: 87636; 99283